=== PATIENT | male | born 1975 | race Caucasian/White ===

== ENCOUNTER 2017-12-14 11:04 | Emergency (ER) | payer MEDICAID, MEDICARE ==
[~2017-12-14] VITALS: Ht 175.3 cm; Wt 104.3 kg
[~2017-12-14 11:04] MED LIST: MET50T PO; WARF3TAB20 PO
[2017-12-14] MEDS ORDERED: SODIUM CHLORIDE 0.9% 1,000 ML IV ONE (11:20)
[2017-12-14 11:47] LABS: Basophils # (auto) 0 uL; Basophils % (auto) 0.3 % (0.0-2.0); Eosinophils # (auto) 0.1 uL; Eosinophils % (auto) 1.5 % (0.0-7.0); Hematocrit 47.2 % (41.0-53.0); Hemoglobin 16.6 g/dL (13.5-17.5); Lymphocytes # (auto) 1.7 uL; Mean Corpuscular Hgb Conc. 35.1 g/dL (32.0-36.0); Mean Corpuscular Volume 85.7 fL (80.0-100.0); Monocytes # (auto) 0.7 uL; Monocytes % (auto) 8.8 % (0.0-12.0); Neutrophils % (auto) 66.4 % (37.0-80.0); Nucleated Red Blood Cells % 0.1 %; Platelet Count (auto) 290 10^3/uL (140-450); Red Blood Cells 5.51 10^6/uL (4.5-5.90); Red Cell Distribution Width 14.2 % (11.8-14.3); White Blood Cell 7.5 10^3/uL (4.4-10.8)
[2017-12-14 12:05] LABS: Albumin 3.7 g/dL (3.4-5.0); Bilirubin, Total 0.6 mg/dL (0.2-1.0); Calcium 8.6 mg/dL (8.5-10.1); Potassium 4.2 mmol/L (3.5-5.1); Total Protein 7.4 g/dL (6.4-8.2)
[2017-12-14 12:46] LABS: Urine Bacteria NONE SEEN /hpf (None Seen); Urine Blood Negative /uL (Negative); Urine Specific Gravity 1.017 (1.001-1.035); Urine WBC <1 /hpf (0 - 3)
[2017-12-14 12:57] VITALS: BP 133/77
[2017-12-14 13:39] LABS: Amylase 60 U/L (25-115); Lipase 280 U/L (73-393)
== END 2017-12-14 14:50 | disposition home or self-care (01) ==
LOC: ER 11:04 → EDBD 11:04 → ER 14:50
DX: K52.9 Noninfective gastroenteritis and colitis, unspecified (principal); I10 Essential (primary) hypertension; I25.10 Atherosclerotic heart disease of native coronary artery without angina pectoris; Z79.01 Long term (current) use of anticoagulants; Z86.73 Personal history of transient ischemic attack (TIA), and cerebral infarction without residual deficits; Z88.0 Allergy status to penicillin; Z90.49 Acquired absence of other specified parts of digestive tract; Z95.1 Presence of aortocoronary bypass graft
CPT/HCPCS: 36415; 74176; 80053; 81001; 82150; 83690; 84484; 85025; 96360; 99285; J7030

== ENCOUNTER 2018-07-20 19:05 | Emergency (ER) | payer MEDICARE ==
[~2018-07-20] VITALS: Ht 175.3 cm; Wt 104.3 kg
[2018-07-20] MEDS ORDERED: fentaNYL CITRATE 100 MCG/2 ML VL ONE (19:43)
[2018-07-20] MEDS ORDERED: fentaNYL CITRATE 100 MCG/2 ML VL IV ONE (19:45)
[2018-07-20 19:52] LABS: Basophils # (auto) 0 uL; Basophils % (auto) 0.4 % (0.0-2.0); Eosinophils # (auto) 0.1 uL; Hematocrit 48.4 % (41.0-53.0); Hemoglobin 16.7 g/dL (13.5-17.5); Lymphocytes % (auto) 27.7 % (10.0-50.0); Mean Corpuscular Hgb Conc. 34.4 g/dL (32.0-36.0); Mean Corpuscular Volume 87.1 fL (80.0-100.0); Monocytes # (auto) 0.6 uL; Monocytes % (auto) 8.4 % (0.0-12.0); Neutrophils # (auto) 4.4 uL; Neutrophils % (auto) 61.5 % (37.0-80.0); Nucleated Red Blood Cells % 0.3 %; Platelet Count (auto) 279 10^3/uL (140-450); Red Blood Cells 5.56 10^6/uL (4.5-5.90); Red Cell Distribution Width 14.3 % (11.8-14.3); White Blood Cell 7.2 10^3/uL (4.4-10.8)
[2018-07-20 20:06] LABS: INR 2.84 (0.9-1.15); Partial Thromboplastin Time 39.7 sec (23.78-33.04); Prothrombin Time 28.6 sec (9.27-12.13)
[2018-07-20 20:07] LABS: Albumin 3.7 g/dL (3.4-5.0); Anion Gap 7 (5-15); Blood Urea Nitrogen 12 mg/dL (7-18); Calcium 8.3 mg/dL (8.5-10.1); Carbon Dioxide 26 mmol/L (21-32); Chloride 107 mmol/L (98-107); Glucose 125 mg/dL (74-106); Magnesium 2.2 mg/dL (1.6-2.6); Potassium 4.3 mmol/L (3.5-5.1); Sodium 140 mmol/L (136-145)
[2018-07-20 20:12] LABS: Alanine Aminotransferase 48 U/L (16-61); Alkaline Phosphatase 69 U/L (45-117); Aspartate Aminotransferase 40 U/L (15-37); BUN/Creatinine Ratio 9.6; Bilirubin, Total 0.6 mg/dL (0.2-1.0); GFR African American 81 mL/min; GFR Non-African American 67 mL/min; Total Protein 7.1 g/dL (6.4-8.2)
[2018-07-20] MEDS ORDERED: KETOROLAC TROMETH 30 MG/ML 1ML VIAL IV ONE (20:45)
[2018-07-21 00:47] VITALS: BP 112/71
== END 2018-07-21 00:59 | disposition home or self-care (01) ==
LOC: EDBD 19:05 → ER 19:06
DX: G40.909 Epilepsy, unspecified, not intractable, without status epilepticus (principal); R55 Syncope and collapse; I25.810 Atherosclerosis of coronary artery bypass graft(s) without angina pectoris; I10 Essential (primary) hypertension; F12.90 Cannabis use, unspecified, uncomplicated; Z88.0 Allergy status to penicillin; Z79.01 Long term (current) use of anticoagulants; Z79.899 Other long term (current) drug therapy; Z86.73 Personal history of transient ischemic attack (TIA), and cerebral infarction without residual deficits; Z95.1 Presence of aortocoronary bypass graft; Z90.49 Acquired absence of other specified parts of digestive tract
CPT/HCPCS: 36415; 70450; 71045; 80053; 83735; 83880; 84484; 85025; 85610; 85730; 86850; 86900; 86901; 93005; 94761; 96374; 96375; 99284; J1885; J3010

== ENCOUNTER 2018-08-10 12:07 | Emergency (ER) | payer MEDICARE ==
[~2018-08-10] VITALS: Ht 175.3 cm; Wt 104.3 kg
[2018-08-10 13:41] VITALS: BP 130/81
[2018-08-10 13:41] LABS: Basophils # (auto) 0 uL; Basophils % (auto) 0.4 % (0.0-2.0); Eosinophils # (auto) 0.1 uL; Eosinophils % (auto) 1.2 % (0.0-7.0); Hematocrit 46.9 % (41.0-53.0); Hemoglobin 16.6 g/dL (13.5-17.5); Lymphocytes # (auto) 1.2 uL; Lymphocytes % (auto) 16.3 % (10.0-50.0); Mean Corpuscular Hemoglobin 30.2 pg (28.0-32.0); Mean Corpuscular Hgb Conc. 35.4 g/dL (32.0-36.0); Mean Corpuscular Volume 85.4 fL (80.0-100.0); Monocytes % (auto) 13.8 % (0.0-12.0); Neutrophils # (auto) 5.1 uL; Neutrophils % (auto) 68.3 % (37.0-80.0); Platelet Count (auto) 242 10^3/uL (140-450); Red Blood Cells 5.49 10^6/uL (4.5-5.90); Red Cell Distribution Width 14.2 % (11.8-14.3); White Blood Cell 7.5 10^3/uL (4.4-10.8)
[2018-08-10 13:51] LABS: INR 2.33 (0.9-1.15); Prothrombin Time 23.8 sec (9.27-12.13)
[2018-08-10 13:57] LABS: Albumin 3.6 g/dL (3.4-5.0); Calcium 8.4 mg/dL (8.5-10.1); Potassium 4.1 mmol/L (3.5-5.1)
[2018-08-10 13:59] LABS: BUN/Creatinine Ratio 11.2
[2018-08-10 14:02] LABS: Bilirubin, Total 0.9 mg/dL (0.2-1.0); Total Protein 7.2 g/dL (6.4-8.2)
[2018-08-10] MEDS ORDERED: SODIUM CHLORIDE 0.9% 1,000 ML IV ONE (14:03)
[2018-08-10] MEDS ORDERED: PROMETHAZINE HCL 25 MG/ML 1ML IV ONE (14:15)
[2018-08-10] MEDS ORDERED: HYDROmorphone HCL 2 MG/ML VL IV ONE (14:15)
== END 2018-08-10 17:07 | disposition home or self-care (01) ==
LOC: ER 12:07 → EDSEX 12:07 → EDBD 12:07 → ER 17:07
DX: S39.012A Strain of muscle, fascia and tendon of lower back, initial encounter (principal); S00.03XA Contusion of scalp, initial encounter; M62.838 Other muscle spasm; M54.2 Cervicalgia; I69.951 Hemiplegia and hemiparesis following unspecified cerebrovascular disease affecting right dominant side; I25.810 Atherosclerosis of coronary artery bypass graft(s) without angina pectoris; I10 Essential (primary) hypertension; F12.90 Cannabis use, unspecified, uncomplicated; Z95.1 Presence of aortocoronary bypass graft; Z90.49 Acquired absence of other specified parts of digestive tract; Z88.0 Allergy status to penicillin; Z79.899 Other long term (current) drug therapy; Z79.01 Long term (current) use of anticoagulants; W18.39XA Other fall on same level, initial encounter; Y93.89 Activity, other specified; Y99.8 Other external cause status; Y92.091 Bathroom in other non-institutional residence as the place of occurrence of the external cause
CPT/HCPCS: 36415; 70450; 71045; 72125; 72131; 80053; 80320; 85025; 85610; 96361; 96374; 96375; 99284; J1170; J2550; J7030

== ENCOUNTER 2019-05-05 17:05 | Inpatient (IN) | payer MEDICARE, MEDICAID ==
[~2019-05-05] VITALS: Ht 177.8 cm; Wt 108.1 kg
[2019-05-05 17:40] LABS: Basophils # (auto) 0 uL; Basophils % (auto) 0.2 % (0.0-2.0); Eosinophils # (auto) 0.1 uL; Eosinophils % (auto) 1.5 % (0.0-7.0); Hematocrit 43.8 % (41.0-53.0); Lymphocytes # (auto) 2.3 uL; Lymphocytes % (auto) 30.1 % (10.0-50.0); Mean Corpuscular Hemoglobin 29.4 pg (28.0-32.0); Mean Corpuscular Hgb Conc. 34.3 g/dL (32.0-36.0); Mean Corpuscular Volume 85.7 fL (80.0-100.0); Monocytes # (auto) 0.6 uL; Monocytes % (auto) 7.4 % (0.0-12.0); Neutrophils # (auto) 4.6 uL; Neutrophils % (auto) 60.8 % (37.0-80.0); Nucleated Red Blood Cells % 0.2 %; Platelet Count (auto) 253 10^3/uL (140-450); Red Blood Cells 5.11 10^6/uL (4.5-5.90); Red Cell Distribution Width 13.8 % (11.8-14.3); White Blood Cell 7.7 10^3/uL (4.4-10.8)
[2019-05-05 18:12] LABS: Alanine Aminotransferase 45 U/L (16-61); Albumin 3.6 g/dL (3.4-5.0); Alkaline Phosphatase 65 U/L (45-117); Anion Gap 7 (5-15); Aspartate Aminotransferase 31 U/L (15-37); BUN/Creatinine Ratio 11.2; Bilirubin, Total 0.6 mg/dL (0.2-1.0); Blood Urea Nitrogen 12 mg/dL (7-18); Calcium 8.2 mg/dL (8.5-10.1); Carbon Dioxide 24 mmol/L (21-32); Chloride 109 mmol/L (98-107); GFR African American 97 mL/min; GFR Non-African American 80 mL/min; Glucose 88 mg/dL (74-106); Magnesium 2.1 mg/dL (1.6-2.6); Potassium 3.7 mmol/L (3.5-5.1); Sodium 140 mmol/L (136-145); Total Protein 6.8 g/dL (6.4-8.2)
[2019-05-05] MEDS ORDERED: IOHEXOL 350 MG/ML 100ML IJ ONE (18:33)
[2019-05-05] MEDS ORDERED: TEMAZEPAM 15 MG CAP PO PRN (21:00)
[2019-05-05] MEDS ORDERED: ONDANSETRON HCL 4 MG/2 ML VIAL IV PRN (21:00)
[2019-05-05] MEDS ORDERED: ACETAMINOPHEN 325 MG TAB PO PRN (21:00)
[2019-05-05] MEDS ORDERED: ONDANSETRON HCL 4 MG/2 ML VIAL IV ONE (21:15)
[2019-05-05] MEDS ORDERED: MORPHINE SULF INJ 2 MG/ML SYRINGE 1ML IV PRN (21:15)
[2019-05-05] MEDS ORDERED: NITROGLYCERIN 0.4 MG SL TAB SL PRN (21:15)
[2019-05-05] MEDS ORDERED: MORPHINE SULFATE 4 MG/ML SYR/VIAL IV ONE (21:15)
[2019-05-05 21:40] LABS: INR 1.69 (0.9-1.15); Partial Thromboplastin Time 34.1 sec (23.64-32.05)
[2019-05-05] MEDS: METOPROLOL TARTRATE 50 MG TAB PO SCH (22:00)
[2019-05-05] MEDS: FAMOTIDINE 20 MG TAB PO SCH (22:11)
[2019-05-05] MEDS: PRAVASTATIN SODIUM 20 MG TAB PO SCH (22:12)
[2019-05-05 22:18] VITALS: BP 127/61
--- NOTE | 2019-05-05 22:20 | NUR ---
Telemetry admit from [facility] N[facility]ON admitted to Telemetry unit after SBAR received. Patient oriented to Debra aragon RN, unit, room, bed, and unit policies regarding patient care and visiting hours. Patient now on continuous telemetry monitoring, tele box # 60 and telemetry reading on arrival to unit is SINUS RHYTHM AT 63. Patient placed on bedside oxygen, weighed by bedscale and encouraged to call if they need something. All questions and concerns addressed, patient verbalized understanding. Note:
[2019-05-05 22:30] VITALS: BP 127/61
[2019-05-05] MEDS ORDERED: WARFARIN SODIUM 5 MG TAB PO ONE (22:30)
[2019-05-05] MEDS ORDERED: WARFARIN SODIUM 2.5 MG TAB PO ONE (23:00)
[2019-05-06] VITALS (7 sets, daily range): BP systolic 93–134; BP diastolic 46–79
[2019-05-06 06:02] LABS: Basophils # (auto) 0 uL; Basophils % (auto) 0.4 % (0.0-2.0); Eosinophils # (auto) 0.1 uL; Eosinophils % (auto) 1.7 % (0.0-7.0); Hematocrit 42.8 % (41.0-53.0); Lymphocytes # (auto) 1.8 uL; Lymphocytes % (auto) 32.4 % (10.0-50.0); Mean Corpuscular Hemoglobin 30.2 pg (28.0-32.0); Mean Corpuscular Volume 86.5 fL (80.0-100.0); Monocytes # (auto) 0.5 uL; Monocytes % (auto) 9.1 % (0.0-12.0); Neutrophils # (auto) 3.2 uL; Neutrophils % (auto) 56.4 % (37.0-80.0); Nucleated Red Blood Cells % 0.5 %; Platelet Count (auto) 218 10^3/uL (140-450); Red Blood Cells 4.94 10^6/uL (4.5-5.90); Red Cell Distribution Width 13.7 % (11.8-14.3); White Blood Cell 5.6 10^3/uL (4.4-10.8)
[2019-05-06 06:14] LABS: INR 1.67 (0.9-1.15)
[2019-05-06 06:46] LABS: BUN/Creatinine Ratio 10.2; Potassium 4.1 mmol/L (3.5-5.1)
--- NOTE | 2019-05-06 07:25 | NUR ---
Opening Note Received report from director of strategic sales RN. Patient is awake, alert and oriented x4. No signs or symptoms of distress noted at this time. Patient is on room air, respirations even and unlabored. Patient states pain 6/10 and is requesting pain medications, will medicate per orders. Reviewed plan of care with patient, patient verbalized understanding. Bed in low and locked position,call light within reach. Will continue to monitor Q1 hour and PRN.
--- NOTE | 2019-05-06 08:15 | NUR ---
Call from nuclear medicine Instructed to keep patient NPO for Cardiolite stress test test, patient informed and verbalized understanding. Will continue to monitor Q1 hour and PRN.
[2019-05-06] MEDS: HYDROcodone-ACET 5/325MG TAB PO PRN ×3 (08:25→21:11)
[2019-05-06] MEDS ORDERED: ADENOSINE 92 MG in GIVE UN-DILUTED 0 ML IV STA (08:45)
--- NOTE | 2019-05-06 08:52 | NUR ---
Area Counselor at bedside
[2019-05-06] MEDS: FAMOTIDINE 20 MG TAB PO SCH ×2 (10:00→21:11)
[2019-05-06] MEDS: METOPROLOL TARTRATE 50 MG TAB PO SCH ×2 (10:00→22:00)
--- NOTE | 2019-05-06 11:35 | NUR ---
Patient back from stress test
[2019-05-06] MEDS ORDERED: WARFARIN SODIUM 2.5 MG TAB PO ONE (17:00)
--- NOTE | 2019-05-06 19:21 | NUR ---
Closing Note Report given to surface boss RN. No signs or symptoms of distress noted at this time.
--- NOTE | 2019-05-06 19:30 | NUR ---
Opening Note Shift Assumed care of patient from Summer RN. Patient is awake, alert and oriented x4. Patient denies pain or shortness of breath at this time. Instructed on plan of care and to call for assistance as needed, patient verbalized understanding. Bed is locked in lowest position, side rails x 2 are up, and call light is within reach.
[2019-05-06] MEDS: PRAVASTATIN SODIUM 20 MG TAB PO SCH (21:11)
--- NOTE | 2019-05-06 22:26 | NUR ---
ROUNDS Patient is laying on his right side, in bed, eyes closed, with even and unlabored respirations noted. No S/S of distress or pain noted at this time. Bed is locked in lowest position, side rails x 2 are up, call light, and urinal is within reach.
[2019-05-07 04:52] VITALS: BP 99/45
[2019-05-07 06:50] LABS: INR 2.04 (0.9-1.15)
--- NOTE | 2019-05-07 06:58 | NUR ---
CLOSING SHIFT NOTE Patient is laying in bed, eyes closed, with even and unlabored respirations noted. Bed is locked in lowest position, side rails x 2 are up, and call light is within reach. Will endorse patient care to Tracey MELGAR.
--- NOTE | 2019-05-07 07:21 | NUR ---
OPENING SHIFT NOTE: PATIENT RESTING IN BED EVEN AND UNLABORED RESPIRATIONS NOTED NO SIGNS OF DISTRESS. BED IN LOWEST LOCKED POSITION. CALL LIGHT WITHIN REACH, WILL CONTINUE TO MONITOR.
--- NOTE | 2019-05-07 08:20 | NUR ---
IV PLACED IN THE LEFT HAND 22G SL. OLD IV IN LEFT AC REMOVED. MANUAL PRESSURE APPLIED, CATHETER INTACT.
--- NOTE | 2019-05-07 08:51 | NUR ---
THIS RN ASSISTED PATIENT WITH BED BATH. ALL SUPPLIES GIVEN FOR AM CARE.
[2019-05-07 09:11] VITALS: BP_SYST 129; BP_SYST 89; BP_DIAS 52; BP_DIAS 68
[2019-05-07] MEDS: HYDROcodone-ACET 5/325MG TAB PO PRN ×3 (09:17→21:27)
[2019-05-07] MEDS: FAMOTIDINE 20 MG TAB PO SCH ×2 (09:17→21:27)
[2019-05-07] MEDS: METOPROLOL TARTRATE 50 MG TAB PO SCH ×2 (09:17→22:00)
[2019-05-07 12:07] LABS: Alcohol, Urine < 3.0 mg/dL (0-5); Amphetamine Screen, Urine NEGATIVE (NEGATIVE); Barbiturate Scree,Urine NEGATIVE (NEGATIVE); Benzodiazephine Screen, Urine NEGATIVE (NEGATIVE); Cannabinoid Screen, Urine NEGATIVE (NEGATIVE); Cocaine Screen, Urine NEGATIVE (NEGATIVE); Opiate Scree,Urine NEGATIVE (NEGATIVE); Phencyclidine Screen, Urine NEGATIVE (NEGATIVE)
[2019-05-07 13:00] VITALS: BP 118/62
--- NOTE | 2019-05-07 14:52 | NUR ---
NUTRITION ASSESSMENT NOTES Please refer to link notes of nutrition screen form filed under the intervention section of the plan of care for further details. Est. Needs: 1950 kcal to 2500 kcal (18-23 kcal/kgBW), 87 gms to 109 gms pro (0.8-1.0 gms/kgBW). Will continue to monitor pertinent labs and reassess nutrient need prn Thank you. Addendum: 05/07/19 at [address] Amended: Links added.
[2019-05-07 17:00] VITALS: BP 131/79
[2019-05-07] MEDS ORDERED: WARFARIN SODIUM 2.5 MG TAB PO ONE (17:00)
--- NOTE | 2019-05-07 17:26 | NUR ---
PAIN REPORTED BY PATIENT: 6/10 POSTERIOR MID BACK DULL PRESSURE. MEDICATED ORDERED, ADVISED PATIENT ABOUT FREQUENT POSITION CHANGES, AND ALTERNATIVE THERAPY. PATIENT VERBALIZED UNDERSTANDING.
--- NOTE | 2019-05-07 18:00 | NUR ---
MD BURTON AT BEDSIDE. NEW ORDERS GIVEN. PATIENT UPDATED ON PLAN OF CARE. WILL CARRY OUT ORDERS.
[2019-05-07] MEDS ORDERED: PHYTONADIONE IV ONE (18:15)
[2019-05-07] MEDS ORDERED: SODIUM CHL 0.9% IV ONE (18:15)
--- NOTE | 2019-05-07 18:22 | NUR ---
PATIENT AMBULATING AROUND UNIT.
--- NOTE | 2019-05-07 18:27 | NUR ---
SPOKE WITH PHARMACY REGARDING VITAMIN K. 10-15 MINUTES TO MAKE AND SEND IN BULLET.
--- NOTE | 2019-05-07 19:00 | NUR ---
CLOSING SHIFT NOTE: PATIENT RESTING IN BED, CALL LIGHT WITHIN REACH, NO SIGNS OF DISTRESS NOTED. WILL ENDORSE CARE TO NOC RN.
--- NOTE | 2019-05-07 19:16 | NUR ---
CARE ENDORSED TO KHALIF MELGAR.
--- NOTE | 2019-05-07 19:30 | NUR ---
Opening Note Shift Assumed care of patient from Tracey MELGAR. Patient is awake, alert and oriented x4. Patient denies pain or shortness of breath at this time. Instructed on plan of care and to call for assistance as needed, patient verbalized understanding. Bed is locked in lowest position, side rails x 2 are up, and call light is within reach.
[2019-05-07] MEDS: PRAVASTATIN SODIUM 20 MG TAB PO SCH (21:27)
[2019-05-07 21:46] VITALS: BP 119/73
[2019-05-08 05:24] VITALS: BP 98/48
--- NOTE | 2019-05-08 07:50 | NUR ---
Patient in bed, asleep, no acute distress noted.
[2019-05-08 09:00] VITALS: BP 91/41
--- NOTE | 2019-05-08 09:20 | NUR ---
Patient came out out of the bathroom, right side body weakness noted, able to walk, back to bed.
[2019-05-08] MEDS: HYDROcodone-ACET 5/325MG TAB PO PRN (09:27)
--- NOTE | 2019-05-08 09:27 | NUR ---
Patient stated his pain level at 7/10 at this time. [place] 5/325 PO given for pain.
--- NOTE | 2019-05-08 09:30 | NUR ---
Hot pack/bags given as requested by the patient.
--- NOTE | 2019-05-08 09:48 | NUR ---
Saba Hawkins at bedside.
[2019-05-08] MEDS: METOPROLOL TARTRATE 50 MG TAB PO SCH ×2 (10:00→21:50)
--- NOTE | 2019-05-08 10:05 | NUR ---
Heart Rate = 57, BP = 91/50. Metoprolol PO not given for decreased heart rate and blood pressure.
[2019-05-08] MEDS: FAMOTIDINE 20 MG TAB PO SCH ×2 (10:30→21:49)
[2019-05-08 13:00] VITALS: BP 118/65
--- NOTE | 2019-05-08 14:30 | NUR ---
Received a call from [employer] RAMÓN Rivero that patient has to be at [facility] at 6:30 am tomorrow, Sunday for left heart cath as per Dr. Jean-Baptiste.
--- NOTE | 2019-05-08 15:50 | NUR ---
Called Laboratory for the PT w/ INR as ordered by Dr. Jean-Baptiste.
[2019-05-08 16:52] LABS: INR 1.52 (0.9-1.15)
[2019-05-08 17:00] VITALS: BP 109/68
--- NOTE | 2019-05-08 17:49 | NUR ---
Latest PT = 16.0 H, INR = 1.52 H.
--- NOTE | 2019-05-08 17:50 | NUR ---
Metalizing Machine Operator Automatic transferred my call to Dr. Jean-Baptiste's answering service. Metalizing Machine Operator Automatic paged Dr. Jean-Baptiste to call back at Replaced by [facility] regarding the latest PT w/ INR results. Waiting for MD to call back.
--- NOTE | 2019-05-08 18:10 | NUR ---
Dr. Jean-Baptiste called back. asked for the latest INR result. Informed Dr. Jean-Baptiste that latest INR = 1.52 H. ordered No Coumadin tonight, will do Left Heart Cath tomorrow morning, Sunday.
--- NOTE | 2019-05-08 18:16 | NUR ---
Patient NPO after midnight, for Left Heart Cath on 05/09/2019, patient to be at [facility] by 6:30 am.
--- NOTE | 2019-05-08 18:48 | NUR ---
Patient requested for laxative. Will page hospitalist induction heating equipment setter.
--- NOTE | 2019-05-08 18:50 | NUR ---
Paged the Hospitalist clinical documentation consultant. Waiting for Dr. Patel to call back.
--- NOTE | 2019-05-08 19:15 | NUR ---
Opening Shift Note Received report from sania Ortiz RN. Assumed care of patient, awake and alert. No S/S of distress/SOB or pain, but patient c/o constipation. MD paged by sania nurse, awaiting call back. Instructed on POC and to call for assist PRN, will continue to monitor for changes Q1hr and PRN. Bed placed in lowest position and call light within reach.
[2019-05-08] MEDS ORDERED: POLYETHYLENE GLYCOL 17 GM PWDR PO ONE (20:45)
[2019-05-08] MEDS: PRAVASTATIN SODIUM 20 MG TAB PO SCH (21:49)
[2019-05-08 22:00] VITALS: BP 124/80
--- NOTE | 2019-05-09 | NUR ---
ROUNDS REMINDED PATIENT ON THE NOTHING BY MOUTH STATUS.
--- NOTE | 2019-05-09 04:43 | NUR ---
ROUNDS PATIENT IS RESTING IN BED WITH EYES CLOSED, NO DISTRESS NOTED.
--- NOTE | 2019-05-09 05:30 | NUR ---
COMPLETE BED CHANGE DONE AND ASSISTED PATIENT TO CLEANSE BODY ESPECIALLY SER[place] AREA.
--- NOTE | 2019-05-09 06:20 | NUR ---
PATIENT TAKEN DOWN TO SIMULATION DEVELOPER FOR A PROCEDURE.
[2019-05-09 06:22] VITALS: BP 105/61
[2019-05-09] MEDS ORDERED: LIDOCAINE 2%HCL (LOCAL ANESTH.) INJ 20ML MDV ONE (07:03)
[2019-05-09] MEDS ORDERED: IODIXANOL 320MG/ML 100ML BTL IV ONE (07:03)
[2019-05-09] MEDS ORDERED: HEPARIN SODIUM (PORCINE) 5000 UNITS/ML 1ML VIAL ONE (07:07)
[2019-05-09] MEDS ORDERED: fentaNYL CITRATE 100 MCG/2 ML VL ONE (07:07)
[2019-05-09] MEDS ORDERED: ANGIOMAX 250 MG VIAL IV ONE (07:07)
[2019-05-09] MEDS ORDERED: VERAPAMIL 2.5MG/ML INJ 2ML VIAL IV ONE (07:07)
[2019-05-09] MEDS ORDERED: SODIUM CHL 0.9% 0 ML ONE (07:08)
[2019-05-09] MEDS ORDERED: MIDAZOLAM HCL 1MG/1ML-2 ML VIAL ONE (07:08)
[2019-05-09] MEDS ORDERED: SODIUM CHLORIDE 0.9% 1,000 ML IV SCH (07:53)
--- NOTE | 2019-05-09 08:30 | NUR ---
Pt returned from lab analyst s/p left cardiac cath per teddy accompanied by Husam MELGAR. Pt noted to be aaox4, pleasant and cooperative and voiced no c/o pain/ discomfort at thist time. pt stated that he was feeling sleepy at this time. report received from Husam MELGAR at bedside. and instruction received re care and removal of lt radial Vasc band. No bleeding noted at the site at this time. Will continue to monitor pt.
--- NOTE | 2019-05-09 09:20 | NUR ---
Phoned Husam MELGAR as pt c/o of bleeding in the vasc band. Noted small amount of dried blood in the site and pt was seen by Husam MELGAR after. No other changes noted in pt's condition. Will continue to monitor pt.
[2019-05-09] MEDS ORDERED: DOCUSATE SOD 100 MG CAP PO SCH (10:00)
--- NOTE | 2019-05-09 10:05 | NUR ---
Deflated the vasc band as per instructions , band removed carefully as per instructionand dry dressings applied to site. No bleeding noted at this time. Pt tolerated it well. Will continue to monitor pt.
[2019-05-09] MEDS: FAMOTIDINE 20 MG TAB PO SCH (10:11)
[2019-05-09] MEDS: METOPROLOL TARTRATE 50 MG TAB PO SCH (10:12)
[2019-05-09 13:00] VITALS: BP 108/54
--- NOTE | 2019-05-09 16:16 | NUR ---
Discharge instructions given as ordered. Encourage to follow up with PMD and Dr. Jean-Baptiste as instructed. All questions and concerns addressed. Patient verbalized understanding. Medication reconciliation form completed and copy given to patient. Telemetry unit returned to ICU. Patient taken to vehicle via wheelchair with all personal belongings, accompanied by staff and family member. No distress noted at time of departure.
== END 2019-05-09 15:45 | disposition home or self-care (01) | DRG 287 ==
LOC: EDBD 17:05 → ER 17:05 → TELE 17:06 → TELE-WESTW 22:15
PROVIDERS: ADMIT Nurse Practitioner; ATTEND Family Medicine
PROC: 4A023N7 Measurement of Cardiac Sampling and Pressure, Left Heart, Percutaneous Approach (ICD-10-PCS; principal; 2019-05-09)
PROC: B211YZZ Fluoroscopy of Multiple Coronary Arteries using Other Contrast (ICD-10-PCS; 2019-05-09)
PROC: B215YZZ Fluoroscopy of Left Heart using Other Contrast (ICD-10-PCS; 2019-05-09)
DX: R07.89 Other chest pain (principal); D68.9 Coagulation defect, unspecified; I10 Essential (primary) hypertension; I25.10 Atherosclerotic heart disease of native coronary artery without angina pectoris; E66.9 Obesity, unspecified; E78.00 Pure hypercholesterolemia, unspecified; F12.90 Cannabis use, unspecified, uncomplicated; R56.9 Unspecified convulsions; Z86.73 Personal history of transient ischemic attack (TIA), and cerebral infarction without residual deficits; Z95.1 Presence of aortocoronary bypass graft; Z95.2 Presence of prosthetic heart valve; I25.2 Old myocardial infarction; Z82.49 Family history of ischemic heart disease and other diseases of the circulatory system; Z83.3 Family history of diabetes mellitus; Z90.49 Acquired absence of other specified parts of digestive tract; Z68.34 Body mass index [BMI] 34.0-34.9, adult; Z88.0 Allergy status to penicillin
CPT/HCPCS: 36415; 71275; 78452; 80048; 80053; 80307; 83735; 84484; 85025; 85610; 85730; 86850; 86900; 86901; 93005; 93017; 93306; 93458; 94761; 96374; 96375; 99152; G0378; J0153; J2250; J2405; J3430; Q9967

== ENCOUNTER 2019-11-03 19:52 | Emergency (ER) | payer MEDICARE, MEDICAID ==
[~2019-11-03] VITALS: Ht 175.3 cm; Wt 95.3 kg
[2019-11-03] MEDS ORDERED: LIDOCAINE W/ EPINEPHRINE 2% INJ 20ML VIAL IJ ONE ×2 (20:15→21:15)
[2019-11-03] MEDS ORDERED: ONDANSETRON HCL 4 MG/2 ML VIAL ONE (20:37)
[2019-11-03] MEDS ORDERED: ONDANSETRON HCL 4 MG/2 ML VIAL IV ONE ×2 (20:45)
[2019-11-03] MEDS ORDERED: SODIUM CHLORIDE 0.9% 1,000 ML IV ONE (20:45)
[2019-11-03] MEDS ORDERED: LIDOCAINE W/ EPINEPHRINE 2% INJ 20ML VIAL ONE (21:17)
[2019-11-03 22:03] LABS: Basophils # (auto) 0 10 ^3/uL (0-0.2); Basophils % (auto) 0.2 % (0.0-2.0); Eosinophils # (auto) 0 10 ^3/uL (0-0.8); Eosinophils % (auto) 0.2 % (0.0-7.0); Hematocrit 42.7 % (41.0-53.0); Hemoglobin 14.1 g/dL (13.5-17.5); Lymphocytes % (auto) 17.1 % (10.0-50.0); Mean Corpuscular Hemoglobin 29.3 pg (28.0-32.0); Mean Corpuscular Volume 88.8 fL (80.0-100.0); Monocytes # (auto) 0.9 10 ^3/uL (0-1.3); Monocytes % (auto) 7.6 % (0.0-12.0); Neutrophils # (auto) 8.9 10 ^3/uL (1.6-8.6); Neutrophils % (auto) 74.9 % (37.0-80.0); Platelet Count (auto) 268 10^3/uL (140-450); Red Blood Cells 4.81 10^6/uL (4.5-5.90); White Blood Cell 11.8 10^3/uL (4.4-10.8)
[2019-11-03 22:23] LABS: INR 2.84 (0.9-1.15); Partial Thromboplastin Time 38.4 sec (23.64-32.05)
[2019-11-04] MEDS ORDERED: ONDANSETRON HCL 4 MG/2 ML VIAL IV ONE (00:15)
[2019-11-04] MEDS ORDERED: PROMETHAZINE HCL 25 MG/ML 1ML IV ONE (01:00)
[2019-11-04 02:30] LABS: Basophils # (auto) 0 10 ^3/uL (0-0.2); Basophils % (auto) 0.1 % (0.0-2.0); Eosinophils # (auto) 0 10 ^3/uL (0-0.8); Eosinophils % (auto) 0.1 % (0.0-7.0); Hemoglobin 13.1 g/dL (13.5-17.5); Lymphocytes # (auto) 1.3 10 ^3/uL (0.4-5.4); Lymphocytes % (auto) 12.9 % (10.0-50.0); Mean Corpuscular Hemoglobin 30.2 pg (28.0-32.0); Mean Corpuscular Hgb Conc. 34.4 g/dL (32.0-36.0); Mean Corpuscular Volume 87.7 fL (80.0-100.0); Monocytes # (auto) 0.8 10 ^3/uL (0-1.3); Monocytes % (auto) 8.4 % (0.0-12.0); Neutrophils % (auto) 78.5 % (37.0-80.0); Platelet Count (auto) 269 10^3/uL (140-450); Red Blood Cells 4.34 10^6/uL (4.5-5.90); Red Cell Distribution Width 14.2 % (11.8-14.3); White Blood Cell 10.1 10^3/uL (4.4-10.8)
[2019-11-04] MEDS ORDERED: SODIUM CHLORIDE 0.9% 2,000 ML IV ONE (06:00)
[2019-11-04 06:30] LABS: Basophils # (auto) 0 10 ^3/uL (0-0.2); Eosinophils # (auto) 0 10 ^3/uL (0-0.8); Eosinophils % (auto) 0.1 % (0.0-7.0); Lymphocytes # (auto) 1.2 10 ^3/uL (0.4-5.4); Lymphocytes % (auto) 13.3 % (10.0-50.0); Mean Corpuscular Hgb Conc. 34.3 g/dL (32.0-36.0); Mean Corpuscular Volume 87.3 fL (80.0-100.0); Monocytes # (auto) 0.7 10 ^3/uL (0-1.3); Neutrophils % (auto) 78.6 % (37.0-80.0); Platelet Count (auto) 237 10^3/uL (140-450); Red Blood Cells 4.01 10^6/uL (4.5-5.90); White Blood Cell 8.9 10^3/uL (4.4-10.8)
[2019-11-04 08:40] VITALS: BP 102/72
== END 2019-11-04 08:40 | disposition home or self-care (01) ==
LOC: ER 19:52
DX: K91.840 Postprocedural hemorrhage of a digestive system organ or structure following a digestive system procedure (principal); F41.1 Generalized anxiety disorder; F43.0 Acute stress reaction; Z79.01 Long term (current) use of anticoagulants; I10 Essential (primary) hypertension; I25.10 Atherosclerotic heart disease of native coronary artery without angina pectoris
CPT/HCPCS: 36415; 41252; 70450; 84484; 85025; 85610; 85730; 86850; 86900; 86901; 93005; 96374; 96375; 96376; 99285; J2405; J2550; J7030

== ENCOUNTER 2024-10-13 15:20 | Inpatient (IN) | payer MEDICARE, MEDICAID ==
[~2024-10-13] VITALS: Ht 177.8 cm; Wt 106.4 kg
--- NOTE | 2024-10-13 15:36 | ED.PDOC ---
HPI (NEURO) HPI Comments 49 y.o male BIB son, presents to the ED for an evaluation of lightheadedness about an hour ago s/p walking 16 miles on the treadmill at the gym today. Son reports patient came back from the gym around 1330, was making food complaining of lightheadedness. Son reports last seen normal at 1400, rushed him to the ED where he became more weak and stated patient was unable to recall anything he did yesterday or today, including going to the gym and making food. Son mentions patient did drive home after the gym and states patient routinely has long walks about 3-4 times a week. Patient arrived via wheelchair, noted to have right sided deficits due to a previous CVA 10 years ago. Patient is able to answer some questions,. 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 REVIEW OF SYSTEMS: CONSTITUTIONAL: Denies acute: fever, diaphoresis, chills, HEAD: Denies acute: headache, photophobia Eyes: Denies acute: Double vision, vision loss, eye pain, eye discharge. EARS: Denies acute: tinnitus, hearing loss, ear discharge, ear pain, THROAT: Denies acute: sore throat, swelling, difficulty swallowing , pain with swallowing, change in voice. NECK: Denies acute: neck pain, neck swelling, stiff neck. HEART: Denies acute : chest pain, palpitations, LUNGS: Denies acute: SOB, wheezing, cough, hemoptysis ABDOMEN: Denies acute: abdominal pain, Nausea, Vomiting, diarrhea, melena , hematemesis, hematochezia SKIN: Denies acute: rash, redness, lesions, itchiness. EXTREMITIES: Denies acute: calf pain, numbness, tingling, weakness, denies pain in extremity. Denies acute: Low back pain. Neuro: Denies acute: focal neurological deficit, motor or sensory focal neurological deficit, tremors, seizure like activity, loss of bowel or bladder function, cauda equina like symptoms. : Denies acute: dysuria, hematuria, flank pain, increase in urinary frequency. PSYCH: Denies acute: hallucination, suicidal ideation, homicidal ideation. PHYSICAL EXAM: General: ---conk-xo-egsdgneg-----acute distress, awake and alert. Head: normocephalic, atraumatic. Neck: supple, trachea is midline, no swelling. Throat: Normal phonation. Eyes:, no erythema, no purulent discharge, no proptosis, no icterus. Heart: regular rate, regular rhythm, no significant murmur appreciated. Lungs: no apparent respiratory distress, No wheezing, no rhonchi, no crackles. No stridors Clear to auscultation bilaterally. Abdomen: non tender to palpation, non distended, soft, no guarding, no rebound, + bowel sounds. Neuro: Awake, Alert, oriented to name, self, situation, follows commands. Somewhat lethargic and slightly confused. GCS=15. Speech is normal. Skin: no petechia, no purpura, no cyanosis, non-pale, not jaundice. Lower extremities: --1/4 bilateral - Pitting edema no deformity, no focal swelling, no calf TTP. Makes eye contact. moves all four extremities. Face: no apparent facial droop. Patient has a chronic right-sided deficit upper and lower extremity. Able to move his left side. ED COURSE: Chief Complaint: General Weakness Time Seen by MD: 15:19 Primary Care Provider: Alyce Ramon Notes: Nurses Notes, Allergies Information Source: Patient, Relative Mode of Arrival: Wheelchair Past Medical History PAST MEDICAL HISTORY: CAD, CVA, HTN, Seizures Surgical History: CABG, Cholecystectomy Family History Family History: Reviewed,noncontributory to illness Social History Smoker: Non-Smoker Alcohol: Denies ETOH Use Drugs: Marijuana Lives In: Home Was a procedure done? Was a procedure done?: No Differential Diagnosis (SZ) CVA: CVA, Electrolyte Imbalance, TIA, Other (Stroke: DDX include TIA, TGA, CVA, intracranial bleed/mass/infection, cerebellar ischemia/infarct, carotid stenosis , lacunar infarct, vertebral/carotid artery dissection,, vertebrobasillary insufficiency, BPV, encephalopathy, electrolyte abnormality, thyroid disease, hydrocephalus, [place] palsy, multiple sclerosis, hypoglycemia, drug toxicity, cardiac arrhythmia, todds paralysis, seizure.) General Weakness: Dehydration, Dysrhythmia, Electrolyte imbalance, Guillain- [place], Hypotension, Meniere's disease, Other (Includes but not limited to thyroid disease, encephalopathy, electrolyte abnormality, sepsis, infection, intracranial pathology, drug adverse effects, arrhythmia, kidney insufficiency, ACS, CVA, malignancy, anemia) X-Ray, Labs, Meds, VS Vital Signs Date Time Temp Pulse Resp B/P (MAP) Pulse Ox O2 Delivery O2 Flow Rate FiO2 10/13/24 20:01 69 20 101/48 (65) 97 10/13/24 20:00 68 10/13/24 19:34 98.2 77 16 123/65 (84) 96 98.2 10/13/24 19:34 80 16 96 Nasal Cannula* 2 28 10/13/24 17:00 71 16 120/66 (84) 91 10/13/24 16:03 98.2 65 16 112/75 (87) 96 98.2 10/13/24 16:03 72 14 96 Room Air* 0 21 10/13/24 16:00 66 10/13/24 15:21 97.6 79 16 122/80 (94) 98 97.6 Lab Test 10/13/24 21:03 10/13/24 19:26 10/13/24 17:19 10/13/24 16:10 Range/Units Urine Color Light-yellow Yellow Urine Clarity Clear Clear Urine pH 5.5 5.0-9.0 Urine Specific [place] > 1.050 H 1.001-1.035 Urine Protein Trace H Negative Urine Ketones 1+ H Negative Urine Blood Negative Negative /uL Urine Nitrite Negative Negative Urine Bilirubin Negative Negative Urine Urobilinogen Normal Negative mg/dL Urine Leukocyte Esterase Negative Negative /uL Urine RBC 3 0 - 3 /hpf Urine Microscopic WBC < 1 0-3 /HPF Urine Squamous Epithelial Cells None seen <5 /hpf Urine Bacteria None seen None Seen /hpf Urine Mucus Few None Seen Urine Glucose Normal Normal mg/dL Urine Opiates Screen Neg NEGATIVE Urine Fentanyl Screen Neg NEGATIVE Urine Barbiturates Screen Neg NEGATIVE Urine Phencyclidine Screen Neg NEGATIVE Urine Amphetamines Screen Neg NEGATIVE Urine Benzodiazepines Screen Neg NEGATIVE Urine Cocaine Screen Neg NEGATIVE Urine Cannabinoids Screen Pos NEGATIVE Troponin I High Sensitivity 43 41 24 </=54 ng/L Triglycerides Level 74 < 150 mg/dL Cholesterol Level 123 < 200 mg/dL LDL Cholesterol 70 < 100 mg/dL HDL Cholesterol 39 L 40-59 mg/dL White Blood Count 10.6 4.4-10.8 10^3/uL Red Blood Count 5.35 4.5-5.90 10^6/uL Hemoglobin 16.4 13.5-17.5 g/dL Hematocrit 47.4 41.0-53.0 % Mean Corpuscular Volume 88.6 80.0-100.0 fL Mean Corpuscular Hemoglobin 30.6 28.0-32.0 pg Mean Corpuscular Hemoglobin Concent 34.6 32.0-36.0 g/dL Red Cell Distribution Width 15.0 H 11.8-14.3 % Platelet Count 223 140-450 10^3/uL Mean Platelet Volume 7.9 6.9-10.8 fL Neutrophils (%) (Auto) 80.9 H 37.0-80.0 % Lymphocytes (%) (Auto) 12.0 10.0-50.0 % Monocytes (%) (Auto) 6.5 0.0-12.0 % Eosinophils (%) (Auto) 0.5 0.0-7.0 % Basophils (%) (Auto) 0.1 0.0-2.0 % Neutrophils # (Auto) 8.6 1.6-8.6 10 ^3/uL Lymphocytes # (Auto) 1.3 0.4-5.4 10 ^3/uL Monocytes # (Auto) 0.7 0-1.3 10 ^3/uL Eosinophils # (Auto) 0.1 0-0.8 10 ^3/uL Basophils # (Auto) 0 0-0.2 10 ^3/uL Nucleated Red Blood Cells 0.2 % Prothrombin Time 21.9 H 9.3-11.8 sec Prothrombin Time INR 2.24 H 0.9-1.15 Activated Partial Thromboplast Time 33.0 24.5-34.5 SEC Sodium Level 136 136-145 mmol/L Potassium Level 4.0 3.5-5.1 mmol/L Chloride Level 109 H 98-107 mmol/L Carbon Dioxide Level 19 L 20-31 mmol/L Anion Gap 8 5-15 Blood Urea Nitrogen 25 H 9-23 mg/dL Creatinine 1.21 0.700-1.30 mg/dL Glomerular Filtration Rate Calc 73 >90 mL/min BUN/Creatinine Ratio 20.7 H 10.0-20.0 Serum Glucose 111 H 74-106 mg/dL Hemoglobin A1c 5.0 <5.7 % A1C Calcium Level 9.8 8.7-10.4 mg/dL Magnesium Level 1.9 1.6-2.6 mg/dL Total Bilirubin 1.1 H 0.2-1.0 mg/dL Aspartate Amino Transferase (AST) 47 H 13-40 U/L Alanine Aminotransferase (ALT) 56 H 7-40 U/L Alkaline Phosphatase 62 46-116 U/L Creatine Kinase 345 H 46-171 U/L B-Type Natriuretic Peptide 24.97 0-100 pg/mL Total Protein 6.7 5.7-8.2 g/dL Albumin 4.4 3.2-4.8 g/dL Current Medications Medications (Trade) Dose Ordered Sig/Lulu Route Start Time Stop Time Status Last Admin Levetiracetam 100 ml @ 400 mls/hr ONCE ONCE IV 10/13/24 16:45 10/13/24 16:59 DC 10/13/24 16:56 [place] [address] Ph: [phone] DIAGNOSTIC IMAGING Diagnostic Imaging Report : [id number] Signed PATIENT: AISHA ULLOA EACCT: [id number] UNIT: [id number] : 1975 LOC: ER ROOM / BED: / AGE / SEX: 49 / M ADM STATUS: REG ER SERVICE 1527 ORDERING PHYSICIAN: IGOR MUÑOZ DO PROCEDURE(s): [place] - ANGIO HEAD/Neck REASON: r/o stroke ORDER NUMBER(s): [id number], ACCESSION NUMBER(s): [id number] EXAM: CT ANGIO HEAD/NECK HISTORY: r/o stroke COMPARISON: None TECHNIQUE: CTA imaging of the neck and head was performed following the uneventful administration of intravenous contrast. Sagittal and coronal reformatted images were obtained from the source data. 3D/MIP post-processing of the source data set was performed and reviewed by the radiologist. Radiation Dose Information: CT Dose: CTDI volume is 23 mGy. Dose-length product is 868 mGy*cm All CT scans at this medical facility are performed using dose modulation techniques as appropriate to a performed exam including the following: Automated exposure control was utilized; adjustment of the MA and/or KV according to patient size; and use of iterative reconstruction technique. FINDINGS: CTA Neck: Aortic Arch: Conventional branching. Right brachiocephalic artery: Unremarkable. Right carotid artery: Unremarkable. Right subclavian artery: Unremarkable. Right vertebral artery: Unremarkable. Left carotid artery: Unremarkable. Left subclavian artery: Unremarkable. Left vertebral artery: Unremarkable. Other: Multilevel degenerative disc disease of the cervical spine noted. CTA Head: [place]: Minimal atherosclerotic calcification of the bilateral carotid siphons without stenosis. Moderate to severe stenosis of the M1 segment of the left MCA with at least 75% stenosis with mild pulses stenotic fusiform aneurysm measuring 2.6 mm in caliber compared to less than 1 mm in the stenotic region. The cortical branches of the left MCA are narrowing caliber in the area of chronic infarct cystic encephalomalacia. The bilateral anterior and posterior cerebral arteries are patent. The basilar and intracranial vertebral arteries are patent. Dural venous: Grossly unremarkable. Other: None. IMPRESSION: 1. 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 The remainder of large intracranial and cervical vessels are patent with no evidence of occlusion or high-grade stenosis. ATED BY: SOLANGE BROOKS MD DICTATED DATE/TIME: 10/13/24 160 SIGNED BY: SOLANGE BROOKS MD SIGNED DATE/TIME: 10/13/24 160 CC: [place] [address] Ph: [phone] DIAGNOSTIC IMAGING Diagnostic Imaging Report : [id number] Signed PATIENT: AISHA ULLOA EACCT: [id number] UNIT: [id number] : 1975 LOC: ER ROOM / BED: / AGE / SEX: 49 / M ADM STATUS: REG ER SERVICE 1527 ORDERING PHYSICIAN: IGOR MUÑOZ DO PROCEDURE(s): CXR1 - CHEST XRAY 1 VIEW REASON: weak ORDER NUMBER(s): [id number], ACCESSION NUMBER(s): [id number] CHEST RADIOGRAPH Indication: weak Technique: Single frontal view of the chest was obtained Comparison: None FINDINGS: Lines and Tubes: None Lungs: No focal consolidation. Interstitial prominence. Pleura: No effusion. No pneumothorax. Cardiomediastinal contours: Mild cardiomegaly. Midline sternotomy wires are noted. Bones: No acute osseous abnormality. IMPRESSION: Mild cardiomegaly with mild pulmonary vascular congestion. ATED BY: STEFANY ARIZMENDI DO DICTATED DATE/TIME: 10/13/241557 SIGNED BY: STEFANY ARIZMENDI DO SIGNED DATE/TIME: 10/13/241557 CC: [place] [address] Ph: [phone] DIAGNOSTIC IMAGING Diagnostic Imaging Report : [id number] Signed PATIENT: AISHA ULLOA EACCT: [id number] UNIT: [id number] : 1975 LOC: ER ROOM / BED: / AGE / SEX: 49 / M ADM STATUS: REG ER SERVICE 0000 ORDERING PHYSICIAN: IGOR MUÑOZ DO PROCEDURE(s): CTH - STROKE CTH REASON: POSS STROKE ORDER NUMBER(s): [id number], ACCESSION NUMBER(s): [id number] Procedure: CT STROKE CTH Study Date and Requested Time: 10/13/2024 03:27 PM History: POSS STROKE Comparison: HEAD WITHOUT CONTRAST on DOS: 11/04/19 Dose: CTDI: 64.03 mGy DLP: 1261.54 mGycm Technique: Multiplanar images obtained through the brain without intravenous contrast. Findings: Normal brain volume and formation. Mild chronic small vessel ischemic changes. There is left frontoparietotemporal lobe encephalomalacia with associated ex vacuo dilatation of the left lateral ventricle. There is bilateral basal ganglia physiologic calcification. No hemorrhages, masses, mass effect, midline shift, herniation or cytotoxic edema following a large vascular territory. No intra-axial or extra-axial fluid collections. No evidence of hydrocephalus. The basal cisterns are patent. The pituitary gland, sella and parasellar regions are unremarkable. The cerebellar tonsils are in normal position. There is prominent cisterna magna versus posterior fossa arachnoid cyst cerebellum is unremarkable. The orbits and globes are unremarkable. Mild mucoperiosteal thickening of the ethmoid air cells with mucous retention cysts within the maxillary sinuses. Otherwise, the paranasal sinuses and mastoids are clear. There are no worrisome calvarial lesions. Impression: No evidence of acute intracranial abnormality. If symptoms persist, MRI should be considered for further evaluation. Encephalomalacia involving the left frontoparietotemporal lobe. Multiple attempts made to contact hospital by Dr. Arizmendi without being able to connect to the cd reactor operator head. ATED BY: STEFANY ARIZMENDI DO DICTATED DATE/TIME: 10/13/24 155 SIGNED BY: STEFANY ARIZMENDI DO SIGNED DATE/TIME: 10/13/241556 CC: Time of 1ST Reevaluation: 15:29 Reevaluation 1ST: Unchanged Time of 2ND Reevaluation: 15:40 (Case discussed with the neurologist on-call Dr. Larsen at this time. He will evaluate through the camera and make recommendations.) Time of 3RD Reevaluation: 16:43 (Neurology evaluated the patient at this time. They recommend admitting the patient to the hospital for EEG and MRI. They recommend Keppra 2 g now and then [address] Larsen) Patient Education/Counseling: Diagnosis, Treatment Family Education/Counseling: Diagnosis, Treatment Comments Patient presented with the above HPI.--altered mental status/neurological complaints----workup was initiated. patient was found with the above mentioned diagnosis. the following medications were ordered: please refer to order lists of meds and tests obtained by myself Dr. Muñoz. Patient ED course and VS have been stabilized. Patient has been reassessed in the ED and remained in a stable condition. Pertinent incidental findings were discussed with the patient and/or family. Patient/family voices understanding and is agreeable with plan. Patient has been observed in the ED adequate length of time to insure improvement/stability. Escalation of care considered: Consideration of escalation to observation or admission Stroke alert was activated immediately in triage. Patient is extremely poor historian unable to obtain useful information from him. Neurology was consulted and evaluated the patient on tele neuro. They recommend no anticoagulation at this time. Patient was already on Coumadin and history of brain aneurysms with the head bleed. Patient was ADMITTED to the medicine team for further evaluation and treatment of their presentation. Patient was DISCHARGED home in a stable condition. All the reports of any imaging studies that were ordered by myself were reviewed by myself. Departure 1 Departure Time of Disposition: 16:44 Impression: Primary Impression: Altered mental status Disposition: ADMITTED INPATIENT Admit to: Tele Condition: Guarded Discharged With: Self Critical Care Note Critical Care Time?: Yes I personally scribed for IGOR MUÑOZ DO ([email or web address]) on 10/13/24 at 15:36. Electronically submitted by Seble Donahue ([facility]). I personally scribed for IGOR MUÑOZ DO ([email or web address]) on 10/13/24 at 15:44. Electronically submitted by [facility]ble [facility]ahue ([facility] I personally scribed for IGOR MUÑOZ DO ([email or web address]) on 10/13/24 at 20:30. E lectronically submitted by Seble Donahue ([facility]). IGOR MUÑOZ DO Oct 13, 2024 15:36
--- NOTE | 2024-10-13 16:00 | DVH ---
CHEST RADIOGRAPH Indication: weak Technique: Single frontal view of the chest was obtained Comparison: None FINDINGS: Lines and Tubes: None Lungs: No focal consolidation. Interstitial prominence. Pleura: No effusion. No pneumothorax. Cardiomediastinal contours: Mild cardiomegaly. Midline sternotomy wires are noted. Bones: No acute osseous abnormality. IMPRESSION: Mild cardiomegaly with mild pulmonary vascular congestion.
--- NOTE | 2024-10-13 16:00 | DVH ---
Procedure: CT STROKE [facility] Study Date and Requested Time: 10/13/2024 03:27 PM History: POSS STROKE Comparison: HEAD WITHOUT CONTRAST on DOS: 11/04/19 Dose: CTDI: 64.03 mGy DLP: 1261.54 mGycm Technique: Multiplanar images obtained through the brain without intravenous contrast. Findings: Normal brain volume and formation. Mild chronic small vessel ischemic changes. There is left frontopa rietotemporal lobe encephalomalacia with associated ex vacuo dilatation of the left lateral ventricle . There is bilateral basal ganglia physiologic calcification. No hemorrhages, masses, mass effect, midline shift, herniation or cytotoxic edema following a large v ascular territory. No intra-axial or extra-axial fluid collections. No evidence of hydrocephalus. The basal cisterns are patent. The pituitary gland, sella and parasellar regions are unremarkable. The cerebellar tonsils are in nor mal position. There is prominent cisterna magna versus posterior fossa arachnoid cyst cerebellum is u nremarkable. The orbits and globes are unremarkable. Mild mucoperiosteal thickening of the ethmoid air cells with mucous retention cysts within the maxillary sinuses. Otherwise, the paranasal sinuses and mastoids a re clear. There are no worrisome calvarial lesions. Impression: No evidence of acute intracranial abnormality. If symptoms persist, MRI should be considered for furt her evaluation. Encephalomalacia involving the left frontoparietotemporal lobe. Multiple attempts made to contact hospital by Dr. Jhaveri without being able to connect to the helper shear operator.
[2024-10-13] MEDS: IOHEXOL 350 MG/ML 100ML IJ ONE (16:01)
[2024-10-13 16:03] VITALS: PULSE 72; RESP 14; O2SAT 96
--- NOTE | 2024-10-13 16:06 | DVH ---
EXAM: CT ANGIO HEAD/NECK HISTORY: r/o stroke COMPARISON: None TECHNIQUE: CTA imaging of the neck and head was performed following the uneventful administration of intravenous contrast. Sagittal and coronal reformatted images were obtained from the source data. 3D /MIP post-processing of the source data set was performed and reviewed by the radiologist. Radiation Dose Information: CT Dose: CTDI volume is 23 mGy. Dose-length product is 868 mGy*cm All CT scans at this medical facility are performed using dose modulation techniques as appropriate t o a performed exam including the following: Automated exposure control was utilized; adjustment of th e MA and/or KV according to patient size; and use of iterative reconstruction technique. FINDINGS: CTA Neck: Aortic Arch: Conventional branching. Right brachiocephalic artery: Unremarkable. Right carotid artery: Unremarkable. Right subclavian artery: Unremarkable. Right vertebral artery: Unremarkable. Left carotid artery: Unremarkable. Left subclavian artery: Unremarkable. Left vertebral artery: Unremarkable. Other: Multilevel degenerative disc disease of the cervical spine noted. CTA Head: [place]: Minimal atherosclerotic calcification of the bilateral carotid siphons without sten osis. Moderate to severe stenosis of the M1 segment of the left MCA with at least 75% stenosis with m ild pulses stenotic fusiform aneurysm measuring 2.6 mm in caliber compared to less than 1 mm in the s tenotic region. The cortical branches of the left MCA are narrowing caliber in the area of chronic in farct cystic encephalomalacia. The bilateral anterior and posterior cerebral arteries are patent. The basilar and intracranial vertebral arteries are patent. Dural venous: Grossly unremarkable. Other: None. IMPRESSION: 1. 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 The remainder of large intracranial and cervical vessels a re patent with no evidence of occlusion or high-grade stenosis.
[2024-10-13 16:31] LABS: Basophils # (auto) 0 10 ^3/uL (0-0.2); Basophils % (auto) 0.1 % (0.0-2.0); Eosinophils # (auto) 0.1 10 ^3/uL (0-0.8); Eosinophils % (auto) 0.5 % (0.0-7.0); Hematocrit 47.4 % (41.0-53.0); Hemoglobin 16.4 g/dL (13.5-17.5); Lymphocytes # (auto) 1.3 10 ^3/uL (0.4-5.4); Mean Corpuscular Hemoglobin 30.6 pg (28.0-32.0); Mean Corpuscular Hgb Conc. 34.6 g/dL (32.0-36.0); Mean Corpuscular Volume 88.6 fL (80.0-100.0); Monocytes # (auto) 0.7 10 ^3/uL (0-1.3); Monocytes % (auto) 6.5 % (0.0-12.0); Neutrophils # (auto) 8.6 10 ^3/uL (1.6-8.6); Neutrophils % (auto) 80.9 % (37.0-80.0); Nucleated Red Blood Cells % 0.2 %; Platelet Count (auto) 223 10^3/uL (140-450); Red Blood Cells 5.35 10^6/uL (4.5-5.90); White Blood Cell 10.6 10^3/uL (4.4-10.8)
--- NOTE | 2024-10-13 16:50 | BSKYNEURO ---
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 Patient cannot provide a clear history of why he is here. At [facility], will call # Scores Time of exam and NIHSS (): 10/13/2024 16:11 Level of Consciousness 1a: [0] = Alert; keenly responsive LOC Questions 1b: [2] = Answers neither correctly LOC Commands 1c: [2] = Performs neither correctly Best Gaze 2: [0] = Normal Facial Palsy 4: [1] = Minor paralysis Motor Arm Left 5a: [0] = No drift Motor Arm Right 5b: [3] = No effort against gravity Motor Leg Left 6a: [2] = Some effort against gravity Motor Leg Right 6b: [3] = No effort against gravity Limb Ataxia 7: [0] = Absent Sensory 8: [2] = Severe to total sensory loss NIHSS Total: 15 # Exam Additional Neurologic Exam: Can name, can repeat, looking a NIHSS not saying anything, shaking head saying can't read then does so slowly # Data Head CT: - no bleed - per radiologist read L frontoparietotemporal encephalomalacia CTA Head: - per radiologist read chronic mod to severe M1 MCA stenosis with chronic L MCA infarct and cystic encephalomalacia. Mild post stent? fusiform aneurysm distal M1 MCA. CTA Neck: - patent vessels - per radiologist read # Assessment Impression: - Weakness Dizziness after an extended work up and not no recollection of the work up, on exam aphasic/confused at times, at time speaking more clearly. Not moving per nurse when first arrived. Per ED and notes, history of seizure, patient denies. Hx of ICH and aneurysm sp stent with chronic R sided weakness, difficult to know if any weakness. Greatest concern for seizure with confusion and being amnestic to the events, as well as some intermittent interaction with nursing and with the Physicians there's some variability to his exam concern that he could be having seizures. no active abnormal movements although he does have some rapid shaking of the right leg when he was in pain that did not appear to be consistent with a seizure. given the concerns though for possible seizure and history of seizure will start the patient on Keppra 2 G and then continue on 500 mg twice daily obtain an EEG. has chronic right-sided weakness which is a parent from his contracted right upper extremity and pain when it is moved and it is difficult to assess if there's any new weakness, per nursing his whole body was essentially not moving at times when she first saw him I'm more concerning for possible seizure however will obtain an MRI brain patient is not a candidate for any thrombolytics due to his history of ich and not a candidate for thrombectomy due to no lvo and overall more concerned about a seizure but still will obtain an MRI brain continue on coumadin for now. given how the patient was not feeling well after working out also cannot rule out a syncopal type of vent or a toxic metabolic or infectious process however would have exp ected the patient to improve overtime if this was simply syncope from dehydration and working out too much # Plan Thrombolytic/Intervention: NOT IV Thrombolysis or IA Intervention candidate Thrombolytic Exclusion (< 3 hour window): - on anticoagulation - history of ICH Intraarterial Exclusion: - no large vessel occlusion (LVO) Target Blood Pressure: - SBP < 220 - DBP < 120 Labs: - comprehensive metabolic panel - CBC - ua - urine drug screen - TSH EtOH. Imaging: (urgency: routine): - MRI Brain without contrast Diagnostic Test: - EEG Therapy/Evaluation: - NPO until swallow evaluation - PT/OT evaluation - speech/swallow consultation Medication: - anticoagulation with coumadin (Warfarin) May continue Coumadin for mech valve Other: - If patient has any neurological deterioration please call me back immediately - seizure precautions - I have discussed my recommendations with the referring provider # Logistics Attestation of consult completion: The patient is located at: [facility]. Facility staff participated in the visit. I performed this telemedicine visit from my offsite office utilizing interactive 2 way audio and visual telecommunication technology. Total time spent in telemedicine encounter: I spent 25 minutes reviewing clinical data and/or imaging, obtaining history, examining the patient, communicating with the onsite care team, and in preparation of this report. # Demographics First Name: AISHA Last Name: ARTEMIO Facility: [facility] Electronically signed at 10/13/2024 16:48 ([place] Time) by Mark Larsen MD Yes MARK LARSEN MD Oct 13, 2024 16:50
[2024-10-13 16:52] LABS: Alkaline Phosphatase 62 U/L (46-116)
[2024-10-13 16:53] LABS: Albumin 4.4 g/dL (3.2-4.8); Anion Gap 8 (5-15); BUN/Creatinine Ratio 20.7 (10.0-20.0); Magnesium 1.9 mg/dL (1.6-2.6); Sodium 136 mmol/L (136-145); Total Protein 6.7 g/dL (5.7-8.2)
[2024-10-13 16:54] LABS: Bilirubin, Total 1.1 mg/dL (0.2-1.0)
[2024-10-13 16:56] LABS: Alanine Aminotransferase 56 U/L (7-40); Aspartate Aminotransferase 47 U/L (13-40); Blood Urea Nitrogen 25 mg/dL (9-23); Calcium 9.8 mg/dL (8.7-10.4); Carbon Dioxide 19 mmol/L (20-31); Chloride 109 mmol/L (98-107); Creatine Kinase IFCC 345 U/L (46-171); Glucose 111 mg/dL (74-106)
[2024-10-13] MEDS: levETIRAcetam 1000 mg/100ml 100 ML IV ONE (16:56)
[2024-10-13 17:02] LABS: INR 2.24 (0.9-1.15); Prothrombin Time 21.9 sec (9.3-11.8)
[2024-10-13 19:34] VITALS: PULSE 80; RESP 16; O2SAT 96
[2024-10-13 21:13] LABS: Urine Bacteria None Seen /hpf (None Seen)
[2024-10-13 21:29] LABS: Urine Blood Negative /uL (Negative); Urine Clarity Clear (Clear); Urine Color Light-Yellow (Yellow); Urine Mucus FEW (None Seen); Urine Protein, UAD TRACE (Negative); Urine Squamous Epithelial Cell None Seen /hpf (<5); Urine Urobilinogen Normal (Negative); Urine WBC < 1 /HPF (0-3); Urine pH 5.5 (5.0-9.0)
[2024-10-13 21:32] LABS: Urine Specific Gravity > 1.050 (1.001-1.035)
[2024-10-13 21:46] LABS: Cannabinoid Screen, Urine Pos (NEGATIVE)
[2024-10-13 22:01] LABS: Amphetamine Screen, Urine Neg (NEGATIVE); Barbiturate Scree,Urine Neg (NEGATIVE); Benzodiazephine Screen, Urine Neg (NEGATIVE); Cocaine Screen, Urine Neg (NEGATIVE); Opiate Scree,Urine Neg (NEGATIVE); Phencyclidine Screen, Urine Neg (NEGATIVE)
[2024-10-13] MEDS ORDERED: ONDANSETRON HCL 4 MG/2 ML VIAL IV PRN (22:45)
--- NOTE | 2024-10-13 22:53 | DVHHPRES ---
History of Present Illness Resident Creating Document: JACEK ANDREW Reason for Visit: confusion. ALOC History of Present Illness Patient is a 49 year old male with a past medical history of CVA with right sided weakness, valvular disease s/p aortic valve repair, HTN, Hyperlipidemia was brought in by his son for evaluation of lightheadedness and weakness. According to the patient, he went to the gym and was there for an hour and 1 and half. Then he started feeling dizzy and vertigo. He did not remember much of what happened after and the next thing he knew he was in the hospital. Per the son report's, patient came back from the gym around 1330, was making food complaining of lightheadedness and the last time the patient was seen normal was at 1400. He was rushed to the ED where he became more weak and stated patient was unable to recall anything he did yesterday or today, including going to the gym and making food. The son also reported that patient did drive home after the gym and states patient routinely has long walks about 3-4 times a week. PMHX: AAA x2, Seizures, ascending thoracic aneurysm repair and left MCA infarction resulting in (his dominant) right hemiparesis CVA (10 yrs ago), on Coumadin for aortic valve repair, HTN and hyperlipidemia, CT PSHx: CABG x2, mechanical valve, cholecystectomy FHX: Reviewed,noncontributory to illness Social History: lives with his sister at home, Non-Smoker, Denies ETOH Use, Marijuana Allergies: Penicillins Past Medical History SEE HPI Past Surgical History SEE HPI Review of Systems Review of Systems Constitutional: Denies fever no chills no feeling of malaise, Dizziness HEENT: Denies headache, ear pain, ear discharges, conjunctivitis, nasal discharge throat pain Cardiovascular: Denies chest pain, palpitation, orthopnea, PND, or pedal edema Respiratory: Denies shortness of breath, cough cough, sputum production, hemoptysis, GI: Denies abdominal pain, nausea, vomiting, diarrhea, hematemesis, hematochezia, : Denies frequency, urgency, hematuria, Endocrine: Denies unintentional weight gain or weight loss, feeling of hot flashes, Ceasar: Denies easy bruising, bleeding disorders, epistaxis Musculoskeletal: Denies joint pains, muscle aches; right sided weakness Psych: No evidence of depression, yon, suicidal ideation Allergies: Coded Allergies: Penicillins (Verified Allergy, Unknown, 04/03/11) Exam Vital Signs Vital Signs Date Time Temp Pulse Resp B/P (MAP) Pulse Ox O2 Delivery O2 Flow Rate FiO2 10/13/24 20:00 68 10/13/24 19:34 98.2 16 123/65 (84) 96 98.2 10/13/24 19:34 Nasal Cannula* 2 28 Exam General Appearance: Alert, Oriented X3, Cooperative, No acute distress; Just dizziness HEENT: Atraumatic, PERRLA, EOMI, Mucous membrane moist/pink Respiratory: Clear to auscultation, Normal air movement Cardiovascular: Regular rate, Normal S1, Normal S2, No murmurs, no chest wall tenderness Abdominal: NO distention, no tenderness, bowel sounds present, no scars noted Extremities: No clubbing, No cyanosis, No edema, Normal pulses, No tenderness/swelling Skin: No rashes, No breakdown, No significant lesion Neuro: Normal gait, Normal speech, Strength at 5/5 X4 ext, Normal tone, Sensation intact, Cranial nerves 3-12 NL, Reflexes 2+ Psych/Mental Status: Mental status NL, Mood NL Labs/Xrays Labs Test 10/13/24 21:03 10/13/24 19:26 10/13/24 16:10 Range/Units Urine Color Light-yellow Yellow Urine Clarity Clear Clear Urine pH 5.5 5.0-9.0 Urine Specific [place] > 1.050 H 1.001-1.035 Urine Protein Trace H Negative Urine Ketones 1+ H Negative Urine Blood Negative Negative /uL Urine Nitrite Negative Negative Urine Bilirubin Negative Negative Urine Urobilinogen Normal Negative mg/dL Urine Leukocyte Esterase Negative Negative /uL Urine RBC 3 0 - 3 /hpf Urine Microscopic WBC < 1 0-3 /HPF Urine Squamous Epithelial Cells None seen <5 /hpf Urine Bacteria None seen None Seen /hpf Urine Mucus Few None Seen Urine Glucose Normal Normal mg/dL Urine Opiates Screen Neg NEGATIVE Urine Fentanyl Screen Neg NEGATIVE Urine Barbiturates Screen Neg NEGATIVE Urine Phencyclidine Screen Neg NEGATIVE Urine Amphetamines Screen Neg NEGATIVE Urine Benzodiazepines Screen Neg NEGATIVE Urine Cocaine Screen Neg NEGATIVE Urine Cannabinoids Screen Pos NEGATIVE Troponin I High Sensitivity 43 </=54 ng/L White Blood Count 10.6 4.4-10.8 10^3/uL Red Blood Count 5.35 4.5-5.90 10^6/uL Hemoglobin 16.4 13.5-17.5 g/dL Hematocrit 47.4 41.0-53.0 % Mean Corpuscular Volume 88.6 80.0-100.0 fL Mean Corpuscular Hemoglobin 30.6 28.0-32.0 pg Mean Corpuscular Hemoglobin Concent 34.6 32.0-36.0 g/dL Red Cell Distribution Width 15.0 H 11.8-14.3 % Platelet Count 223 140-450 10^3/uL Mean Platelet Volume 7.9 6.9-10.8 fL Neutrophils (%) (Auto) 80.9 H 37.0-80.0 % Lymphocytes (%) (Auto) 12.0 10.0-50.0 % Monocytes (%) (Auto) 6.5 0.0-12.0 % Eosinophils (%) (Auto) 0.5 0.0-7.0 % Basophils (%) (Auto) 0.1 0.0-2.0 % Neutrophils # (Auto) 8.6 1.6-8.6 10 ^3/uL Lymphocytes # (Auto) 1.3 0.4-5.4 10 ^3/uL Monocytes # (Auto) 0.7 0-1.3 10 ^3/uL Eosinophils # (Auto) 0.1 0-0.8 10 ^3/uL Basophils # (Auto) 0 0-0.2 10 ^3/uL Nucleated Red Blood Cells 0.2 % Prothrombin Time 21.9 H 9.3-11.8 sec Prothrombin Time INR 2.24 H 0.9-1.15 Activated Partial Thromboplast Time 33.0 24.5-34.5 SEC Sodium Level 136 136-145 mmol/L Potassium Level 4.0 3.5-5.1 mmol/L Chloride Level 109 H 98-107 mmol/L Carbon Dioxide Level 19 L 20-31 mmol/L Anion Gap 8 5-15 Blood Urea Nitrogen 25 H 9-23 mg/dL Creatinine 1.21 0.700-1.30 mg/dL Glomerular Filtration Rate Calc 73 >90 mL/min BUN/Creatinine Ratio 20.7 H 10.0-20.0 Serum Glucose 111 H 74-106 mg/dL Calcium Level 9.8 8.7-10.4 mg/dL Magnesium Level 1.9 1.6-2.6 mg/dL Total Bilirubin 1.1 H 0.2-1.0 mg/dL Aspartate Amino Transferase (AST) 47 H 13-40 U/L Alanine Aminotransferase (ALT) 56 H 7-40 U/L Alkaline Phosphatase 62 46-116 U/L Creatine Kinase 345 H 46-171 U/L B-Type Natriuretic Peptide 24.97 0-100 pg/mL Total Protein 6.7 5.7-8.2 g/dL Albumin 4.4 3.2-4.8 g/dL Assessment/Plan Assessment/Plan Assessment Dizziness and weakness after extended workup Possible seizure activity, CK : 345, history of seizure as well Syncope Intermittent amnesia L frontoparietotemporal encephalomalacia Chronic mod to severe M1 MCA stenosis with chronic L MCA infarct and cystic encephalomalacia. Mild post stent? fusiform aneurysm distal M1 MCA on CT Mild cardiomegaly with mild pulmonary vascular congestion noted on chest x-ray Right hemiparesis Obesity grade 1 Plan Target Blood Pressure:- SBP < 220, DBP < 120 Neurology on board For the possible seizure and history of seizure will start the patient on Keppra 2 G and then continue on [address] HEAD W/O CONTRAST: NO ICH; Continue warfarin EEG pending Check keppra level Repeat CK ECHO pending PT evaluation Seizure precaution Goal of care discussed for more than 35 minutes: Full code Case and plan discussed with Dr. Solis Plan discussed with: Patient Date of Service: Oct 13, 2024 Billing Provider: TEA SOLIS MD Common Visit Codes: 49830-[id number] INP/OBS CARE (HIGH) JACEK ANDREW RESIDENT Oct 13, 2024 22:53 TEA SOLIS MD Oct 14, 2024 11:06
[2024-10-13 23:13] LABS: Triglycerides 74 mg/dL (< 150)
[2024-10-13 23:14] LABS: LDL Cholesterol 70 mg/dL (< 100)
[2024-10-13 23:15] LABS: Cholesterol 123 mg/dL (< 200)
[2024-10-13 23:17] LABS: HDL Cholesterol 39 mg/dL (40-59)
--- NOTE | 2024-10-14 06:30 | DVH ---
EXAM: XR Chest, 1 View CLINICAL INDICATION: Aspiration penumonia TECHNIQUE: Frontal view of the chest. COMPARISON: XY CHEST XRAY 1 VIEW on DOS: 10/13/24 FINDINGS: LUNGS AND PLEURAL SPACES: See below. HEART: Cardiomegaly with mild congestion. MEDIASTINUM: Unremarkable. Normal mediastinal contour. BONES/JOINTS: Unremarkable. No acute fracture. OTHER FINDINGS: . IMPRESSION: Cardiomegaly with mild congestion.
[2024-10-14 06:48] LABS: Basophils # (auto) 0 10 ^3/uL (0-0.2); Basophils % (auto) 0.2 % (0.0-2.0); Eosinophils # (auto) 0.1 10 ^3/uL (0-0.8); Hematocrit 45.8 % (41.0-53.0); Hemoglobin 15.9 g/dL (13.5-17.5); Lymphocytes # (auto) 1.7 10 ^3/uL (0.4-5.4); Lymphocytes % (auto) 21.3 % (10.0-50.0); Mean Corpuscular Hemoglobin 30.7 pg (28.0-32.0); Mean Corpuscular Hgb Conc. 34.8 g/dL (32.0-36.0); Monocytes # (auto) 0.6 10 ^3/uL (0-1.3); Monocytes % (auto) 7.9 % (0.0-12.0); Neutrophils # (auto) 5.6 10 ^3/uL (1.6-8.6); Neutrophils % (auto) 69.6 % (37.0-80.0); Platelet Count (auto) 220 10^3/uL (140-450); White Blood Cell 8.1 10^3/uL (4.4-10.8)
[2024-10-14 07:08] LABS: Albumin 4.3 g/dL (3.2-4.8); Alkaline Phosphatase 60 U/L (46-116); Anion Gap 7 (5-15); BUN/Creatinine Ratio 14.2 (10.0-20.0); Blood Urea Nitrogen 16 mg/dL (9-23); Calcium 9.3 mg/dL (8.7-10.4); Carbon Dioxide 24 mmol/L (20-31); Glucose 86 mg/dL (74-106); Potassium 3.9 mmol/L (3.5-5.1); Sodium 140 mmol/L (136-145); Total Protein 6.7 g/dL (5.7-8.2)
[2024-10-14 07:11] LABS: Alanine Aminotransferase 53 U/L (7-40); Aspartate Aminotransferase 44 U/L (13-40); Bilirubin, Total 1.4 mg/dL (0.2-1.0); Chloride 109 mmol/L (98-107); Creatine Kinase IFCC 254 U/L (46-171)
[2024-10-14] MEDS ORDERED: ATORVASTATIN 20 MG TAB PO ONE (08:00)
--- NOTE | 2024-10-14 09:16 | DVH ---
EXAMINATION: MRI BRAIN HEAD WO CONTRAST INDICATION: structural brain abnormality to rule out. COMPARISON: CTA head 10/13/2024 TECHNIQUE: Multiplanar, multisequence magnetic resonance imaging of the brain was performed without t he use of intravenous contrast. FINDINGS: There is a punctate focus of restricted diffusion in the posterior right centrum semiovale (axial dif fusion-weighted image 10) may represent a small acute to subacute lacunar infarct. There is no signi ficant edema, hemorrhage or associated mass effect. There is chronic infarct in the left frontal temporal lobe with encephalomalacia and gliosis. There is ex vacuo dilatation of the left lateral ventricle. There are mild chronic small-vessel ischemic c hanges in the supratentorial white matter. There is no hydrocephalus or extra-axial fluid collection. The sagittal midline structures appear un remarkable. Note is again made of retro cerebellar CSF collection which May relate to tomasz cisterna m agna versus arachnoid cyst. The calvarium demonstrates normal marrow signal. There are small retentio n cysts in the maxillary sinuses. Mastoid air cells are clear. IMPRESSION: 1. Punctate focus of restricted diffusion in the posterior right centrum semiovale may represent a sm all acute to subacute lacunar infarct. There is no significant edema, hemorrhage or associated mass e ffect. 2. Chronic infarct in the left frontal temporal lobe. HS:Y
[2024-10-14] MEDS ORDERED: WARFARIN SODIUM 6 MG PO SCH (10:00)
[2024-10-14] MEDS: levETIRAcetam 500 mg/100ml 100 ML IV SCH (10:48)
[2024-10-14] MEDS: ASPirin 81 mg TAB PO SCH (10:48)
--- NOTE | 2024-10-14 10:54 | DVHINCON2 ---
Date of service: Oct 14, [address] Fuller Reason for Consultation Rule out stroke History of Present Illness Mr. Guido is a 49 years old not sure left-sided gentleman with a history of hypertension, coronary artery disease, abdominal aortic aneurysm, stroke with residual right-sided weakness, seizure disorder, he was [facility] to the [facility] on 10/13/2024 with a chief complaint of weakness, lightheadedness. At this time, he is alert and fully oriented, he provided the following history After 1.5 hours working out in the gym, the patient developed blurry vision, a weird feeling, lightheadedness/a feeling of about passing out, he stopped working with exercise, drove home after a shower. At home, he was noticed to be confused, and he did not remember what happened to him that day, and family decided to bring him to medical attention. He relates he does not remember everything happened yesterday, but he remembers what he told me above, and the ambulance. He was no similar experience previously He was seen by tele stroke doctor, a concerning of possible seizure raised and Keppra was recommended and started in the morning on 10/14/2024. Thrombolytic treatment and intra-arterial intervention were not recommended. In 2014, he developed acute right-sided weakness, the patient was transferred to the [facility] from a local hospital, where he was said to have a stroke, he was transferred to rehab after acute treatment. Baseline at home is able to walk, to use the right upper extremity to to some degree. 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 Priscilla Moore I have also discussed with his nurse UDS, 10/13/2024: Cannabinoids Plasma alcohol, 10/14/2024: < 3 Urinalysis, 10/13/2024: WBC: <1, urine leukocyte esterase: Negative CBC, 10/14/2024: Unremarkable PT/INR/ABG, 10/13/2024: 21.9/2.24/33 BUN/CR, 10/13/2024: 25/1.21, 10/14/2024: 16/1.13 CBC, 10/13/2024: 345, 10/14/2024: 254 TBI/AST/ALT/AP 10/14/2024: 1.4/44/53/60 Hepatitis panel, 10/14/2024: TG/HDL/LDL/HDL, 10/13/2024: 74/123/17/39 CT head, 10/13/2024: No evidence of acute intracranial abnormality. If symptoms persist, MRI should be considered for further evaluation. Encephalomalacia involving the left frontoparietotemporal lobe CTA head, neck, 10/13/2024: Chronic moderate to severe stenosis of the M1 segme nt of the left MCA with associated chronic left MCA territorial infarcts and cystic encephalomalacia. 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 The remainder of large intracranial and cervical vessels are patent with no evidence of occlusion or high-grade stenosis. MRI head, 10/14/2024: 1. Punctate focus of restricted diffusion in the posterior right centrum semiovale may represent a small acute to subacute lacunar infarct. There is no significant edema, hemorrhage or associated mass effect. 2. Chronic infarct in the left frontal temporal lobe Past Medical History Hypertension, coronary artery disease, abdominal aortic aneurysm, stroke with right-sided deficit, seizure Past Surgical History Ascending aortic aneurysm repair, mechanical valve implantation, cholecystectomy Family History: Family history: Diabetes mellitus G8 MOTHER, Onset:Unknown Family history: Hypertension G8 MOTHER, Onset:Unknown G8 FATHER, Onset:Unknown Family History Hypertension, diabetes Social History He was a tobacco smoker, but no history of alcohol or recreational substance abuse Allergies: Coded Allergies: Penicillins (Verified Allergy, Unknown, 04/03/11) Home Meds Reported Medications Metoprolol Tartrate (LOPRESSOR TABLET) 50 Mg Tb, 50 MG PO DAILY, #60 TAB 5 Refills 03/27/16 Warfarin Sodium (Coumadin) 3 Mg Tab, 6 MG PO DAILY, #30 TAB 5 Refills 03/27/16 Current Medications Current Medications Medications (Trade) Dose Ordered Sig/Lulu Route PRN Reason Start Time Stop Time Status Last Admin Ondansetron HCl (Zofran) 4 mg Q4HP PRN IV NAUSEA / VOMITING 10/13/24 22:45 Patient Own Medication 6 mg DAILY PO 10/14/24 10:00 10/14/24 07:59 DC Levetiracetam 100 ml @ 400 mls/hr BID IV 10/14/24 10:00 Warfarin Sodium (Coumadin Per Rx Protocol) 6 mg PER PHARMACY PO 10/14/24 08:00 UNV Aspirin 81 mg DAILY PO 10/14/24 10:00 Atorvastatin Calcium (Lipitor) 40 mg HS PO 10/14/24 22:00 10/14/24 09:51 DC Review of Systems As above, the other systems are negative Vital Signs Vital Signs Date Time Temp Pulse Resp B/P (MAP) Pulse Ox O2 Delivery O2 Flow Rate FiO2 10/14/24 08:00 Room Air* 0 21 10/14/24 08:00 97.7 69 17 117/68 (84) 93 97.7 Physical Exam GENERAL EXAM: General: the patient is well developed and nourished. No acute distress. HEENT: Normocephalic, neck is supple, no carotid bruits. No mass. RESPIRATORY: Normal respiratory effort with symmetrical lung expansion. Lungs clear to auscultation. CARDIOVASCULAR: Regular rate and rhythm with no murmurs. S1, S2. ABDOMEN: Soft, nontender, normal bowel sound NEUROLOGICAL: MENTAL STATUS: Awake and alert. Oriented to person, place, time and general circumstances. Able to give personal history. SPEECH, LANGUAGE, HIGHER CORTICAL FUNCTION: no aphasia or dysathria. CRANIAL NERVES: #2: Intact visual arguello to confrontation. The optic discs were sharp. #3,4,6: Pupils are equal, round and reactive. EOMs full and conjugate. No nystagmus. #5: Facial sensation intact in all three divisions bilaterally. Mandibular strength intact. #7: Facial muscles symmetrical and strength intact. #8: Hearing grossly normal to voice. #9,10: Uvula and soft palate rise in the midline. Swallow and voice are normal. #11: Trapezius and sternomastoid strength intact bilaterally. #12: Tongue midline. No fasciculations or atrophy. SENSATION: Sensation to touch and pinprick is normal. MOTOR: Tone feels higher in the right arm and the leg. Normal muscle bulk. No fasciculations. No abnormal movements or posturing. Muscle strength of the major groups in the left extremities is 5/5. Muscle strength of the major groups in t he right extremities is: Upper extremity: 4/5, lower extremity: 5/5. REFLEXES: Deep tendon reflexes are increased in the right extremities, 4/4 in the right ankle. Upgoing two in the right foot CEREBELLAR/COORDINATION: Finger to nose is normal bilaterally. GAIT/STATION: deferred. Labs/Diagnostic Data Labs Test 10/14/24 07:54 10/14/24 06:15 10/13/24 21:03 10/13/24 19:26 Range/Units White Blood Count 8.1 4.4-10.8 10^3/uL Red Blood Count 5.20 4.5-5.90 10^6/uL Hemoglobin 15.9 13.5-17.5 g/dL Hematocrit 45.8 41.0-53.0 % Mean Corpuscular Volume 88.0 80.0-100.0 fL Mean Corpuscular Hemoglobin 30.7 28.0-32.0 pg Mean Corpuscular Hemoglobin Concent 34.8 32.0-36.0 g/dL Red Cell Distribution Width 15.0 H 11.8-14.3 % Platelet Count 220 140-450 10^3/uL Mean Platelet Volume 8.2 6.9-10.8 fL Neutrophils (%) (Auto) 69.6 37.0-80.0 % Lymphocytes (%) (Auto) 21.3 10.0-50.0 % Monocytes (%) (Auto) 7.9 0.0-12.0 % Eosinophils (%) (Auto) 1.0 0.0-7.0 % Basophils (%) (Auto) 0.2 0.0-2.0 % Neutrophils # (Auto) 5.6 1.6-8.6 10 ^3/uL Lymphocytes # (Auto) 1.7 0.4-5.4 10 ^3/uL Monocytes # (Auto) 0.6 0-1.3 10 ^3/uL Eosinophils # (Auto) 0.1 0-0.8 10 ^3/uL Basophils # (Auto) 0 0-0.2 10 ^3/uL Nucleated Red Blood Cells 0.0 % Sodium Level 140 136-145 mmol/L Potassium Level 3.9 3.5-5.1 mmol/L Chloride Level 109 H 98-107 mmol/L Carbon Dioxide Level 24 20-31 mmol/L Anion Gap 7 5-15 Blood Urea Nitrogen 16 9-23 mg/dL Creatinine 1.13 0.700-1.30 mg/dL Glomerular Filtration Rate Calc 79 >90 mL/min BUN/Creatinine Ratio 14.2 10.0-20.0 Serum Glucose 86 74-106 mg/dL Calcium Level 9.3 8.7-10.4 mg/dL Total Bilirubin 1.4 H 0.2-1.0 mg/dL Aspartate Amino Transferase (AST) 44 H 13-40 U/L Alanine Aminotransferase (ALT) 53 H 7-40 U/L Alkaline Phosphatase 60 46-116 U/L Creatine Kinase 254 H 46-171 U/L Total Protein 6.7 5.7-8.2 g/dL Albumin 4.3 3.2-4.8 g/dL Thyroid Stimulating Hormone (TSH) 1.04 0.55-4.78 uIU/mL Plasma/Serum Blood Alcohol < 3.0 <10 mg/dL Urine Color Light-yellow Yellow Urine Clarity Clear Clear Urine pH 5.5 5.0-9.0 Urine Specific Scre[place] > 1.050 H 1.001-1.035 Urine Protein Trace H Negative Urine Ketones 1+ H Negative Urine Blood Negative Negative /uL Urine Nitrite Negative Negative Urine Bilirubin Negative Negative Urine Urobilinogen Normal Negative mg/dL Urine Leukocyte Esterase Negative Negative /uL Urine RBC 3 0 - 3 /hpf Urine Microscopic WBC < 1 0-3 /HPF Urine Squamous Epithelial Cells None seen <5 /hpf Urine Bacteria None seen None Seen /hpf Urine Mucus Few None Seen Urine Glucose Normal Normal mg/dL Urine Opiates Screen Neg NEGATIVE Urine Fentanyl Screen Neg NEGATIVE Urine Barbiturates Screen Neg NEGATIVE Urine Phencyclidine Screen Neg NEGATIVE Urine Amphetamines Screen Neg NEGATIVE Urine Benzodiazepines Screen Neg NEGATIVE Urine Cocaine Screen Neg NEGATIVE Urine Cannabinoids Screen Pos NEGATIVE Troponin I High Sensitivity 43 </=54 ng/L Triglycerides Level 74 < 150 mg/dL Cholesterol Level 123 < 200 mg/dL LDL Cholesterol 70 < 100 mg/dL HDL Cholesterol 39 L 40-59 mg/dL Test 10/13/24 16:10 Range/Units Prothrombin Time 21.9 H 9.3-11.8 sec Prothrombin Time INR 2.24 H 0.9-1.15 Activated Partial Thromboplast Time 33.0 24.5-34.5 SEC Hemoglobin A1c 5.0 <5.7 % A1C Magnesium Level 1.9 1.6-2.6 mg/dL B-Type Natriuretic Peptide 24.97 0-100 pg/mL Assessment Poor memory, confusion on 10/14/23 Metabolic encephalopathy secondary to dehydration secondary to high intensity physical activity Secondary to acute stroke ? 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 Although this document has been carefully reviewed, there may still be some phonetic and typographical errors. These areas are purely typographical due to imperfections of the software programs, and do not reflect any compromise in the patient's medical care. Plan discussed with: Patient, Other DEANDRE FRIEDMAN MD Oct 14, 2024 10:53
[2024-10-14] MEDS: SODIUM CHLORIDE 0.9% 1,000 ML IV SCH (12:44)
[2024-10-14] MEDS ORDERED: LORazepam 2MG/ML-1ML VIAL IV PRN (12:45)
--- NOTE | 2024-10-14 13:58 | DVHPNRES ---
Progress Note Date Seen: Oct 14, 2024 Resident Creating Document: VENITA BEE RESIDENT Medical Necessity Reason Pt with a Central, PICC or Fol: No Subjective Review of Systems Patient is a 49 year old male with a past medical history of CVA with right sided weakness, valvular disease s/p aortic valve repair, HTN, Hyperlipidemia was brought in by his son for evaluation of lightheadedness and weakness. According to the patient, he went to the gym and was there for an hour and 1 and half. Then he started feeling dizzy and vertigo. He did not remember much of what happened after and the next thing he knew he was in the hospital. Per the son report's, patient came back from the gym around 1330, was making food complaining of lightheadedness and the last time the patient was seen normal was at 1400. He was rushed to the ED where he became more weak and stated patient was unable to recall anything he did yesterday or today, including going to the gym and making food. The son also reported that patient did drive home after the gym and states patient routinely has long walks about 3-4 times a week. Patient was seen and examined on the bedside. He is alert oriented x3. Complain of lightheadedness especially during standing. Orthostatic vital negative and no other active complaint. Constitutional: No: Fever, Chills, Sweats, Weakness, Malaise, Other Eyes: No: Pain, Vision change, Conjunctivae inflammation, Eyelid inflammation, Other, Redness ENT: No: Ear pain, Ear discharge, Nose pain, Nose discharge, Nose congestion, Mouth pain, Mouth swelling, Throat pain, Throat swelling, Other Respiratory: Shortness of breath, improving No: Cough, Dry,Wheezing, Hemoptysis, Pleuritic Pain, Sputum, Wheezing, Other Cardiovascular: No: Chest Pain, Palpitations, Orthopnea, Paroxysmal Noc. Dyspnea, Edema, Lt Headedness, Other Gastrointestinal: No: Nausea, Vomiting, Abdominal Pain, Diarrhea, Constipation, Melena, Hematochezia, Other Musculoskeletal: No: other, neck pain, shoulder pain, arm pain, back pain, hand pain, leg pain, foot pain Neurological:; No: Weakness, Numbness, Incoordination, Change in speech, Confusion, Seizures Objective vital signs Vital Sign Date Time Temp Pulse Resp B/P (MAP) Pulse Ox O2 Delivery O2 Flow Rate FiO2 4/1/25 12:00 97.9 136 17 127/75 (92) 97 97.9 10/14/24 08:00 Room Air* 0 21 Total Intake and Output 10/13/24 10/13/24 10/14/24 15:00 23:00 07:00 Intake Total 100 ml Balance 100 ml medications Current Medications Medications Dose Ordered Sig/Lulu Route Start Time Stop Time Status Last Admin Dose Admin Ondansetron HCl 4 mg Q4HP PRN IV 10/13/24 22:45 Warfarin Sodium 6 mg PER PHARMACY PO 10/14/24 08:00 UNV Sodium Chloride 1,000 ml @ 100 mls/hr Q10H IV 10/14/24 11:45 10/14/24 12:44 100 MLS/HR Lorazepam 1 mg Q5MINP PRN IV 10/14/24 12:45 Examination Physical examination: General Appearance: Alert, Oriented X3, Cooperative, No acute distress HEENT: Atraumatic, PERRLA, EOMI, Mucous membrane moist/pink Respiratory: Clear to auscultation, Normal air movement Cardiovascular: Regular rate, Normal S1, Normal S2, No murmurs, no chest wall tenderness Abdominal: Normal bowel sounds, Soft, No tenderness, No hepatospenomegaly, No masses Extremities: No clubbing, No cyanosis, No edema, Normal pulses, No tenderness/swelling Skin: No rashes, No breakdown, No significant lesion Neuro: Rt sided hemiparesis Normal speech, Strength at 5/5 X2 ext, 3/5 in rt upper and 4/5 in rt lower extremity, Normal tone, Sensation intact, Cranial nerves 3-12 NL, Reflexes 2+ Psych/Mental Status: Mental status NL, Mood NL laboratory and microbiology Laboratory Tests 10/14/24 06:15 Test 10/14/24 06:15 Range/Units Serum Glucose 86 74-106 mg/dL Labs and/or images reviewed: Labs reviewed by me, Image(s) reviewed by me Problem List/Assessment/Plan Problem List/Assessment/Plan Assessment and plan: # Acute metabolic encephalopathy secondary to dehydration secondary to high intense physical activity # Acute/Subacute stroke # Dizziness likely due to dehydration # Hyperbillirubinemia with transaminitis likely due to dehydration # Seizure like activity likely due to stroke # Questionable partial complex seizure # Chronic stroke with residual right hemiparesis - MRI Of the head without contrast demonstrated Punctate focus of restricted diffusion in the posterior right centrum semiovale may represent a small acute to subacute lacunar infarct. There is no significant edema, hemorrhage or associated mass effect. - CTA of neck showed Chronic moderate to severe stenosis of the M1 segment of the left MCA with associated chronic left MCA territorial infarcts and cystic encephalomalacia. 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 The remainder of large intracranial and cervical vessels are patent with no evidence of occlusion or high-grade stenosis. - Pending echo - Neurology on board ,discontinued Keppra, aspirin ,preventive seizure treatment and recommended EEG, Lipitor 20 mg daily, Ativan for seizure breakthrough and physical therapy - Elevated creatine kinase - IV normal saline at 100 mL/hour - Atorvastatin 20 mg p.o. at HS - Ativan 1 mg Q 5 minutes p.r.n. for seizure - Physical therapy # Status post mechanical aortic valve with secondary hypercoagulable state # status post ascending aortic aneurysm repair # Hypertensive heart disease - Continue warfarin p.o. per pharmacy - BP is on the lower side # PUD prophylaxis - Protonix 40 mg p.o. daily # DVT prophylaxis - Patient is on warfarin Goal of care discussed with the patient for more than 15 minutes full code Plan discussed with Dr. Moore Plan discussed with: Patient, Other My Orders My Orders Orders - VENITA BEE Procedure Category Date Status Time Sodium Chloride 0.9% PHA 10/14/24 In Process 11:45 Atorvastatin (Lipitor) PHA 10/14/24 Logged 22:00 Date of Service: Oct 14, 2024 Billing Provider: JAMEEL DE LEON MD Common Visit Codes: [id number] INP/OBS CARE(HIGH) VENITA BEE Oct 14, 2024 13:58 JAMEEL DE LEON MD Oct 16, 2024 00:09
[2024-10-14 17:00] VITALS: BP 122/71; PULSE 67; RESP 17; TEMP 97.5; O2SAT 94
--- NOTE | 2024-10-14 17:57 | CONS ---
Pharmacy Clinical Information: Heparin drip per pharmacy Spoke to RAMÓN Tripp regarding to aPTT level: Due to hard stick, aPTT was drawn from the port in the same catheter runing haparin drip after stopping heparin drip and flush with 3ml NS Current dose: 800 units/hr Current aPTT: 114.2 today at 1640 (3rd time the aPTT > 100) Request RAMÓN Tripp repeat the aPTT that should be drawn from different iv line from heparin drip new order of aPTT stat entered in per RX PROTOCOL LEYDA Farrar Oct 14, 2024 17:57
[2024-10-14 20:00] VITALS: PULSE 64; PULSE 69; RESP 19
--- NOTE | 2024-10-14 20:34 | DVHEEG2 ---
Neurology EEG Procedural Note Procedural Note EXAM DATE: 10/14/2024 REFERRING DOCTOR: Dr. Friedman TECHNIQUE: Eighteen channels of EEG, 2 channels of EOG, and 1 channel of EKG were recorded using the International 10/20 system. CLINICAL DATA: The patient was referred for an EEG evaluation for the evidence of seizure disorder. MEDICATIONS: See chart BACKGROUND ACTIVITY: While the patient was awake, the background activity consisted of well regulated 9-10 Hz rhythmic waveforms, symmetrically distributed over both posterior quadrants and was reactive to eye opening. ACTIVATION: Hyperventilation: Not done Photic Stimulation: Not done Sleep: Not seen IMPRESSION: This is a normal EEG. No focal, lateralized, or epileptiform features are noted. If clinically indicated to rule out a seizure disorder, recommend repeat EEG with sleep deprivation. The EKG channel showed a regular heart rate of 66/min[place] [address] DEANDRE FRIEDMAN MD Oct 14, 2024 20:34
[2024-10-14 20:48] LABS: INR 1.52 (0.9-1.15); Partial Thromboplastin Time 31.3 SEC (24.5-34.5); Prothrombin Time 15.5 sec (9.3-11.8)
[2024-10-14 21:00] VITALS: BP 124/75; PULSE 64; RESP 19; TEMP 97.6; O2SAT 95
[2024-10-14] MEDS: WARFARIN SODIUM 2.5 MG TAB PO ONE (21:31)
[2024-10-14] MEDS: ATORVASTATIN 20 MG TAB PO SCH (21:31)
[2024-10-14] MEDS ORDERED: ATORVASTATIN 20 MG TAB PO SCH (22:00)
[2024-10-15 01:00] VITALS: BP 91/67; PULSE 76; RESP 18; TEMP 97.8; O2SAT 100
[2024-10-15] MEDS ORDERED: ATOR20TA50 PO (04:34)
[2024-10-15 05:00] VITALS: BP 129/68; PULSE 64; RESP 21; TEMP 97.4; O2SAT 93
[2024-10-15 06:41] LABS: INR 1.48 (0.9-1.15); Potassium 4.2 mmol/L (3.5-5.1); Prothrombin Time 15.1 sec (9.3-11.8); Sodium 140 mmol/L (136-145)
[2024-10-15 06:42] LABS: Anion Gap 6 (5-15); Calcium 9.3 mg/dL (8.7-10.4); Carbon Dioxide 26 mmol/L (20-31)
[2024-10-15 06:47] LABS: Blood Urea Nitrogen 14 mg/dL (9-23); Glucose 102 mg/dL (74-106)
[2024-10-15 06:48] LABS: Chloride 108 mmol/L (98-107)
[2024-10-15 06:49] LABS: BUN/Creatinine Ratio 12.2 (10.0-20.0)
[2024-10-15 07:23] LABS: Basophils # (auto) 0 10 ^3/uL (0-0.2); Basophils % (auto) 0.3 % (0.0-2.0); Eosinophils # (auto) 0.2 10 ^3/uL (0-0.8); Eosinophils % (auto) 2.5 % (0.0-7.0); Hemoglobin 16.4 g/dL (13.5-17.5); Lymphocytes # (auto) 1.6 10 ^3/uL (0.4-5.4); Lymphocytes % (auto) 26.1 % (10.0-50.0); Mean Corpuscular Hemoglobin 31.2 pg (28.0-32.0); Mean Corpuscular Hgb Conc. 34.2 g/dL (32.0-36.0); Mean Corpuscular Volume 91.2 fL (80.0-100.0); Monocytes # (auto) 0.5 10 ^3/uL (0-1.3); Monocytes % (auto) 7.8 % (0.0-12.0); Neutrophils # (auto) 3.9 10 ^3/uL (1.6-8.6); Neutrophils % (auto) 63.3 % (37.0-80.0); Nucleated Red Blood Cells % 0.2 %; Platelet Count (auto) 214 10^3/uL (140-450); Red Blood Cells 5.27 10^6/uL (4.5-5.90); Red Cell Distribution Width 14.9 % (11.8-14.3); White Blood Cell 6.2 10^3/uL (4.4-10.8)
[2024-10-15 08:00] VITALS: PULSE 63
[2024-10-15 09:00] VITALS: BP 116/70; PULSE 64; RESP 17; TEMP 97.4; O2SAT 96
--- NOTE | 2024-10-15 10:19 | DVHPN2 ---
Progress Note - Dictate Date Seen: Oct 15, 2024 Medical Necessity Reason Pt with a Central, PICC or Fol: No Subjective Mr. Guido is a 49 years old not sure left-sided gentleman with a history of hypertension, coronary artery disease, abdominal aortic aneurysm, stroke with residual right-sided weakness, seizure disorder, he was brought to the [facility] on 10/13/2024 with a chief complaint of weakness, lightheadedness. I have seen and examined the patient, I have discussed with his nurse, he was doing fine, no new complaints He tells me he had a negative sleep study 10 years ago He lives alone and does not think he snores UDS, 10/13/2024: Cannabinoids Plasma alcohol, 10/14/2024: < 3 Urinalysis, 10/13/2024: WBC: <1, urine leukocyte esterase: Negative CBC, 10/14/2024: Unremarkable PT/INR/ABG, 10/13/2024: 21.9/2.24/33 BUN/CR, 10/13/2024: 25/1.21, 10/14/2024: 16/1.13 CBC, 10/13/2024: 345, 10/14/2024: 254 TBI/AST/ALT/AP 10/14/2024: 1.4/44/53/60 Hepatitis panel, 10/14/2024: TG/HDL/LDL/HDL, 10/13/2024: 74/123/70/39 EEG, 10/14/2024: Normal CT head, 10/13/2024: No evidence of acute intracranial abnormality. If symptoms persist, MRI should be considered for further evaluation. Encephalomalacia involving the left frontoparietotemporal lobe CTA head, neck, 10/13/2024: Chronic moderate to severe stenosis of the M1 segment of the left MCA with associated chronic left MCA territorial infarcts and cystic encephalomalacia. 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 The remainder of large intracranial and cervical vessels are patent with no evidence of occlusion or high-grade stenosis. MRI head, 10/14/2024: 1. Punctate focus of restricted diffusion in the posterior right centrum semiovale may represent a small acute to subacute lacunar infarct. There is no significant edema, hemorrhage or associated mass effect. 2. Chronic infarct in the left frontal temporal lobe vital signs Vital Sign Date Time Temp Pulse Resp B/P (MAP) Pulse Ox O2 Delivery O2 Flow Rate FiO2 10/15/24 09:00 97.4 64 17 116/70 (85) 96 97.4 10/14/24 20:00 Room Air* 0 21 Total Intake and Output 10/14/24 10/14/24 10/15/24 14:59 22:59 06:59 Intake Total 240 ml 460 ml Output Total 535 ml Balance 240 ml -75 ml medications Current Medications Medications Dose Ordered Sig/Lulu Route Start Time Stop Time Status Last Admin Dose Admin Ondansetron HCl 4 mg Q4HP PRN IV 10/13/24 22:45 Lorazepam 1 mg Q5MINP PRN IV 10/14/24 12:45 Atorvastatin Calcium 20 mg HS PO 10/14/24 22:00 10/14/24 21:31 20 MG Warfarin Sodium -Hazardous Drug -DO NOT CRUSH OR ... PER PHARMACY PO 10/14/24 15:00 Sodium Chloride 1,000 ml @ 125 mls/hr Q8H IV 10/15/24 10:15 UNV objective General: the patient is well developed and nourished. No acute distress. MENTAL STATUS: Awake and alert. Oriented to person, place, time and general circumstances. Able to give personal history. SPEECH, LANGUAGE, HIGHER CORTICAL FUNCTION: no aphasia or dysathria. CRANIAL NERVES: Pupils are equal, round and reactive. EOMs full and conjugate. No nystagmus. Facial sensation intact in all three divisions bilaterally. Mandibular strength intact. Facial muscles symmetrical and strength intact. SENSATION: Sensation to touch and pinprick is normal. MOTOR: Tone feels higher in the right arm and leg. Normal muscle bulk. No fasciculations. No abnormal movements or posturing. Muscle strength of the major groups in the left extremities is 5/5. Muscle strength of the major groups in the right extremities is: Upper extremity: 4/5, lower extremity: 5/5. REFLEXES: Deep tendon reflexes are increased in the right extremities, 4/4 in the right ankle. Upgoing two in the right foot CEREBELLAR/COORDINATION: Finger to nose is normal bilaterally. GAIT/STATION: deferred laboratory and microbiology Laboratory Tests 10/15/24 04:58 Test 10/15/24 04:58 Range/Units Serum Glucose 102 74-106 mg/dL Problem List Poor memory, confusion on 10/14/23 Metabolic encephalopathy secondary to dehydration secondary to high intensity physical activity Secondary to acute stroke ? 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 Although this document has been carefully reviewed, there may still be some phonetic and typographical errors. These areas are purely typographical due to imperfections of the software programs, and do not reflect any compromise in the patient's medical care. Prognosis poor Plan discussed with: Patient, Other DEANDRE FRIEDMAN MD Oct 15, 2024 10:19
[2024-10-15] MEDS: SODIUM CHLORIDE 0.9% 1,000 ML IV SCH (12:31)
[2024-10-15 13:00] VITALS: BP 138/76; PULSE 68; RESP 18; TEMP 97.6; O2SAT 93
--- NOTE | 2024-10-15 16:41 | DVHDSRES ---
Discharge Summary Date of Admission Resident Creating Document: VENITA BEE RESIDENT Oct 13, 2024 at 22:42 Date of Discharge: Oct 15, 2024 Admitting Diagnosis Dizziness and weakness after extended workup Seizure-like activity likely due to subacute stroke Wounds: No wound was present Labs/Diagnostic Data: Laboratory Results Test 10/15/24 04:58 10/14/24 19:35 10/14/24 12:06 10/14/24 07:54 White Blood Count 6.2 10^3/uL (4.4-10.8) Red Blood Count 5.27 10^6/uL (4.5-5.90) Hemoglobin 16.4 g/dL (13.5-17.5) Hematocrit 48.0 % (41.0-53.0) Mean Corpuscular Volume 91.2 fL (80.0-100.0) Mean Corpuscular Hemoglobin 31.2 pg (28.0-32.0) Mean Corpuscular Hemoglobin Concent 34.2 g/dL (32.0-36.0) Red Cell Distribution Width 14.9 % (11.8-14.3) Platelet Count 214 10^3/uL (140-450) Mean Platelet Volume 8.5 fL (6.9-10.8) Neutrophils (%) (Auto) 63.3 % (37.0-80.0) Lymphocytes (%) (Auto) 26.1 % (10.0-50.0) Monocytes (%) (Auto) 7.8 % (0.0-12.0) Eosinophils (%) (Auto) 2.5 % (0.0-7.0) Basophils (%) (Auto) 0.3 % (0.0-2.0) Neutrophils # (Auto) 3.9 10 ^3/uL (1.6-8.6) Lymphocytes # (Auto) 1.6 10 ^3/uL (0.4-5.4) Monocytes # (Auto) 0.5 10 ^3/uL (0-1.3) Eosinophils # (Auto) 0.2 10 ^3/uL (0-0.8) Basophils # (Auto) 0 10 ^3/uL (0-0.2) Nucleated Red Blood Cells 0.2 % Prothrombin Time 15.1 sec (9.3-11.8) Prothrombin Time INR 1.48 (0.9-1.15) Sodium Level 140 mmol/L (136-145) Potassium Level 4.2 mmol/L (3.5-5.1) Chloride Level 108 mmol/L (98-107) Carbon Dioxide Level 26 mmol/L (20-31) Anion Gap 6 (5-15) Blood Urea Nitrogen 14 mg/dL (9-23) Creatinine 1.15 mg/dL (0.700-1.30) Glomerular Filtration Rate Calc 78 mL/min (>90) BUN/Creatinine Ratio 12.2 (10.0-20.0) Serum Glucose 102 mg/dL (74-106) Calcium Level 9.3 mg/dL (8.7-10.4) Activated Partial Thromboplast Time 31.3 SEC (24.5-34.5) Creatine Kinase 240 U/L (46-171) Test 10/14/24 06:15 10/13/24 21:03 10/13/24 19:26 10/13/24 16:10 Total Bilirubin 1.4 mg/dL (0.2-1.0) Aspartate Amino Transferase (AST) 44 U/L (13-40) Alanine Aminotransferase (ALT) 53 U/L (7-40) Alkaline Phosphatase 60 U/L (46-116) Total Protein 6.7 g/dL (5.7-8.2) Albumin 4.3 g/dL (3.2-4.8) Thyroid Stimulating Hormone (TSH) 1.04 uIU/mL (0.55-4.78) Plasma/Serum Blood Alcohol < 3.0 mg/dL (<10) Urine Color Light-yellow (Yellow) Urine Clarity Clear (Clear) Urine pH 5.5 (5.0-9.0) Urine Specific [place] > 1.050 (1.001-1.035) Urine Protein Trace (Negative) Urine Ketones 1+ (Negative) Urine Blood Negative /uL (Negative) Urine Nitrite Negative (Negative) Urine Bilirubin Negative (Negative) Urine Urobilinogen Normal mg/dL (Negative) Urine Leukocyte Esterase Negative /uL (Negative) Urine RBC 3 /hpf (0 - 3) Urine Microscopic WBC < 1 /HPF (0-3) Urine Squamous Epithelial Cells None seen /hpf (<5) Urine Bacteria None seen /hpf (None Seen) Urine Mucus Few (None Seen) Urine Glucose Normal mg/dL (Normal) Urine Opiates Screen Neg (NEGATIVE) Urine Fentanyl Screen Neg (NEGATIVE) Urine Barbiturates Screen Neg (NEGATIVE) Urine Phencyclidine Screen Neg (NEGATIVE) Urine Amphetamines Screen Neg (NEGATIVE) Urine Benzodiazepines Screen Neg (NEGATIVE) Urine Cocaine Screen Neg (NEGATIVE) Urine Cannabinoids Screen Pos (NEGATIVE) Troponin I High Sensitivity 43 ng/L (</=54) Triglycerides Level 74 mg/dL (< 150) Cholesterol Level 123 mg/dL (< 200) LDL Cholesterol 70 mg/dL (< 100) HDL Cholesterol 39 mg/dL (40-59) Hemoglobin A1c 5.0 % A1C (<5.7) Magnesium Level 1.9 mg/dL (1.6-2.6) B-Type Natriuretic Peptide 24.97 pg/mL (0-100) Other Laboratory Tests 10/15/24 04:58 Brief Hx & Hospital Course: Patient is a 49 year old male with a past medical history of CVA with right sided weakness, valvular disease s/p aortic valve repair, HTN, Hyperlipidemia was brought in by his son for evaluation of lightheadedness and weakness. According to the patient, he went to the gym and was there for an hour and 1 and half. Then he started feeling dizzy and vertigo. He did not remember much of what happened after and the next thing he knew he was in the hospital. Per the son report's, patient came back from the gym around 1330, was making food complaining of lightheadedness and the last time the patient was seen normal was at 1400. He was rushed to the ED where he became more weak and stated patient was unable to recall anything he did yesterday or today, including going to the gym and making food. The son also reported that patient did drive home after the gym and states patient routinely has long walks about 3-4 times a week. Hospital course: MRI Of the head without contrast demonstrated Punctate focus of restricted diffusion in the posterior right centrum semiovale may represent a small acute to subacute lacunar infarct. There is no significant edema, hemorrhage or associated mass effect. 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 The remainder of large intracranial and cervical vessels are patent with no evidence of occlusion or high-grade stenosis. Neurology on board ,discontinued Keppra, aspirin ,seizure precaution and recommended EEG, Lipitor 20 mg daily, Ativan for seizure breakthrough and physical therapy. EEG demonstrated normal EEG ,No focal, lateralized, or epileptiform features are noted and Neurologist cleared the patient for discharge. Patient is being discharged to home ,advised to continue home medications and follow up with PCP in 1 week. Physical examination: General Appearance: Alert, Oriented X3, Cooperative, No acute distress HEENT: Atraumatic, PERRLA, EOMI, Mucous membrane moist/pink Respiratory: Clear to auscultation, Normal air movement Cardiovascular: Regular rate, Normal S1, Normal S2, No murmurs, no chest wall tenderness Abdominal: Normal bowel sounds, Soft, No tenderness, No hepatospenomegaly, No masses Extremities: No clubbing, No cyanosis, No edema, Normal pulses, No tenderness/swelling Skin: No rashes, No breakdown, No significant lesion Neuro: Rt sided hemiparesis Normal speech, Strength at 5/5 X2 ext, 3/5 in rt upper and 4/5 in rt lower extremity, Normal tone, Sensation intact, Cranial nerves 3-12 NL, Reflexes 2+ Psych/Mental Status: Mental status NL, Mood NL Discharge diagnosis: # Acute metabolic encephalopathy secondary to dehydration secondary to high intense physical activity # Acute/Subacute stroke # Dizziness likely due to dehydration # Hyperbillirubinemia with transaminitis likely due to dehydration # Seizure like activity likely due to stroke # Questionable partial complex seizure # Chronic stroke with residual right hemiparesis # Status post mechanical aortic valve with secondary hypercoagulable state # status post ascending aortic aneurysm repair # Hypertensive heart disease Consults/Reason for consult Neurology was consulted Operations or Procedures EXAMINATION: MRI BRAIN HEAD WO CONTRAST INDICATION: structural brain abnormality to rule out. FINDINGS: There is a punctate focus of restricted diffusion in the posterior right centrum semiovale (axial diffusion-weighted image 10) may represent a small acute to subacute lacunar infarct. There is no significant edema, hemorrhage or associated mass effect. There is chronic infarct in the left frontal temporal lobe with encephalomalacia and gliosis. There is ex vacuo dilatation of the left lateral ventricle. There are mild chronic small-vessel ischemic changes in the supratentorial white matter. There is no hydrocephalus or extra-axial fluid collection. The sagittal midline structures appear unremarkable. Note is again made of retro cerebellar CSF collection which May relate to tomasz cisterna magna versus arachnoid cyst. The calvarium demonstrates normal marrow signal. There are small retention cysts in the maxillary sinuses. Mastoid air cells are clear. IMPRESSION: 1. Punctate focus of restricted diffusion in the posterior right centrum semiovale may represent a small acute to subacute lacunar infarct. There is no significant edema, hemorrhage or associated mass effect. 2. Chronic infarct in the left frontal temporal lobe. EXAM: CT ANGIO HEAD/NECK FINDINGS: CTA Neck: Aortic Arch: Conventional branching. Right brachiocephalic artery: Unremarkable. Right carotid artery: Unremarkable. Right subclavian artery: Unremarkable. Right vertebral artery: Unremarkable. Left carotid artery: Unremarkable. Left subclavian artery: Unremarkable. Left vertebral artery: Unremarkable. Other: Multilevel degenerative disc disease of the cervical spine noted. CTA Head: [place]: Minimal atherosclerotic calcification of the bilateral carotid siphons without stenosis. Moderate to severe stenosis of the M1 segment of the left MCA with at least 75% stenosis with mild pulses stenotic fusiform aneurysm measuring 2.6 mm in caliber compared to less than 1 mm in the stenotic region. The cortical branches of the left MCA are narrowing caliber in the area of chronic infarct cystic encephalomalacia. The bilateral anterior and posterior cerebral arteries are patent. The basilar and intracranial vertebral arteries are patent. Dural venous: Grossly unremarkable. Other: None. IMPRESSION: 1. 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 The remainder of large intracranial and cervical vessels are patent with no evidence of occlusion or high-grade stenosis. EEG Procedural Note Procedural Note EXAM DATE: 10/14/2024 CLINICAL DATA: The patient was referred for an EEG evaluation for the evidence of seizure disorder. MEDICATIONS: See chart BACKGROUND ACTIVITY: While the patient was awake, the background activity consisted of well regulated 9-10 Hz rhythmic waveforms, symmetrically distributed over both posterior quadrants and was reactive to eye opening. ACTIVATION: Hyperventilation: Not done Photic Stimulation: Not done Sleep: Not seen IMPRESSION: This is a normal EEG. No focal, lateralized, or epileptiform features are noted. If clinically indicated to rule out a seizure disorder, recommend repeat EEG with sleep deprivation. The EKG channel showed a regular heart rate of 66/min Condition at Discharge: Guarded Final Diagnosis/Problems List # Acute metabolic encephalopathy secondary to dehydration secondary to high intense physical activity # Acute/Subacute stroke # Dizziness likely due to dehydration # Hyperbillirubinemia with transaminitis likely due to dehydration # Seizure like activity likely due to stroke # Questionable partial complex seizure # Chronic stroke with residual right hemiparesis # Status post mechanical aortic valve with secondary hypercoagulable state # status post ascending aortic aneurysm repair # Hypertensive heart disease Discharge Disposition: Home Discharge Instruct/Medications Diet: Cardiac 2g Na,low cholest Activity: No Restrictions, As Tolerated Follow Up/Referral: Follow up with PCP in 1 week Medications: As per EMR Discharge Statement: "Patient was advised to return to the ER or call 911 if any headaches, dizziness, shortness of breath, chest pain, abdominal pain, bleeding, fevers, or worsening of medical condition. Patient was counseled about treatment plan, medications, possible side effects, patientverbalized understanding. All questions were answered to the best of my ability. This discharge took greater then 30 minutes in planning, reviewing documentation, counseling the patient, and discussing with other team members." ASSESSMENT ASSESSMENT Assessment # Acute metabolic encephalopathy secondary to dehydration secondary to high intense physical activity # Acute/Subacute stroke # Dizziness likely due to dehydration # Hyperbillirubinemia with transaminitis likely due to dehydration # Seizure like activity likely due to stroke # Questionable partial complex seizure # Chronic stroke with residual right hemiparesis # Status post mechanical aortic valve with secondary hypercoagulable state # status post ascending aortic aneurysm repair # Hypertensive heart disease VENITA BEE RESIDENT Oct 15, 2024 16:41
[2024-10-15 17:00] VITALS: BP 126/77; PULSE 65; RESP 17; TEMP 97.3; O2SAT 94
[2024-10-15] MEDS: WARFARIN SODIUM 5 MG TAB PO ONE (17:11)
[2024-10-16 09:13] LABS: Hepatitis B Surface Antigen Negative (Negative); Hepatitis C Antibody Negative (Negative)
[2024-10-16 09:22] LABS: Hepatitis B Core Total AB Negative (Negative)
[2024-10-16 13:44] LABS: Hepatitis A Total Antibody Negative (Negative); Hepatitis B Surface Antibody Negative (Negative); Hepatitis B Surface Antigen Negative (Negative); Hepatitis C Antibody Negative (Negative)
== END 2024-10-15 16:00 | disposition home or self-care (01) | DRG 64 ==
LOC: ER 15:20 → OVERFLOW 22:42 → TELE-CENTR 10-14 15:47 → CENTRAL 10-15 12:00
PROVIDERS: ADMIT Student in an Organized Health Care Education/Training Program; ATTEND Emergency Medicine
DX: I63.9 Cerebral infarction, unspecified (principal); G93.41 Metabolic encephalopathy; G81.91 Hemiplegia, unspecified affecting right dominant side; D68.69 Other thrombophilia; G40.209 Localization-related (focal) (partial) symptomatic epilepsy and epileptic syndromes with complex partial seizures, not intractable, without status epilepticus; G93.89 Other specified disorders of brain; I51.7 Cardiomegaly; R74.01 Elevation of levels of liver transaminase levels; R29.715 NIHSS score 15; F17.200 Nicotine dependence, unspecified, uncomplicated; I25.10 Atherosclerotic heart disease of native coronary artery without angina pectoris; I71.21 Aneurysm of the ascending aorta, without rupture; E78.5 Hyperlipidemia, unspecified; E86.0 Dehydration; E66.9 Obesity, unspecified; Z68.31 Body mass index [BMI] 31.0-31.9, adult; Z79.899 Other long term (current) drug therapy; Z90.49 Acquired absence of other specified parts of digestive tract; Z95.1 Presence of aortocoronary bypass graft; Z79.01 Long term (current) use of anticoagulants; Z83.3 Family history of diabetes mellitus; Z82.49 Family history of ischemic heart disease and other diseases of the circulatory system; Z79.2 Long term (current) use of antibiotics; Z88.0 Allergy status to penicillin; Z95.2 Presence of prosthetic heart valve; I11.0 Hypertensive heart disease with heart failure; I50.9 Heart failure, unspecified
CPT/HCPCS: 36415; 70450; 70496; 70498; 70551; 71045; 80048; 80053; 80061; 80307; 80320; 81001; 82542; 82550; 83036; 83735; 83880; 84443; 84484; 85025; 85610; 85730; 86704; 86706; 86708; 86803; 87340; 92610; 93306; 95819; 96365; 97163; G0378